=== PATIENT | female | born 1945 | race Caucasian/White ===

== ENCOUNTER 2021-01-01 14:48 | Outpatient (CLI) | payer MEDICARE ==
[2021-01-02 00:54] LABS: SARS-CoV-2 PCR by NAA Not Detected (NotDetected)
== END 2021-01-01 14:49 | disposition home or self-care (01) ==
LOC: LABBT 14:48
DX: Z01.812 Encounter for preprocedural laboratory examination (principal); Z20.822 Contact with and (suspected) exposure to COVID-19
CPT/HCPCS: U0003; U0005

== ENCOUNTER 2022-04-26 05:59 | Day surgery (SDC) | payer OTHER ==
[2022-04-25 15:50] VITALS: BMI 16.5
[2022-04-26] MEDS ORDERED: Lidocaine 1% (PF) 30 ML VIAL ONE (06:30)
[2022-04-26] MEDS ORDERED: EPINEPHrine 1 MG/ML AMP ONE (06:30)
== END 2022-04-26 07:45 | disposition home or self-care (01) ==
LOC: CCL 05:59
PROVIDERS: ATTEND Internal Medicine Cardiovascular Disease
PROC: 0JH632Z Insertion of Monitoring Device into Chest Subcutaneous Tissue and Fascia, Percutaneous Approach (ICD-10-PCS; principal; 2022-04-26)
DX: R55 Syncope and collapse (principal); I47.1 Supraventricular tachycardia; E78.00 Pure hypercholesterolemia, unspecified; I11.9 Hypertensive heart disease without heart failure; E03.9 Hypothyroidism, unspecified; I65.23 Occlusion and stenosis of bilateral carotid arteries; I08.0 Rheumatic disorders of both mitral and aortic valves; Z86.73 Personal history of transient ischemic attack (TIA), and cerebral infarction without residual deficits; Z79.82 Long term (current) use of aspirin; Z79.890 Hormone replacement therapy; Z79.899 Other long term (current) drug therapy; Z88.0 Allergy status to penicillin; Z88.5 Allergy status to narcotic agent
CPT/HCPCS: 33285; J0171; J2001

== ENCOUNTER 2022-07-19 13:45 | Outpatient (CLI) | payer OTHER | END 2022-07-19 13:46 | disposition home or self-care (01) | LOC: BICRAD 13:45 | PROVIDERS: ATTEND Anesthesiology Pain Medicine | DX: M16.12 Unilateral primary osteoarthritis, left hip (principal) ==

== ENCOUNTER 2022-08-04 12:22 | Outpatient (CLI) | payer OTHER | END 2022-08-04 12:23 | disposition home or self-care (01) | LOC: TBSIIMAG 12:22 | PROVIDERS: ATTEND Anesthesiology Pain Medicine | DX: M48.062 Spinal stenosis, lumbar region with neurogenic claudication (principal); M47.816 Spondylosis without myelopathy or radiculopathy, lumbar region; K83.8 Other specified diseases of biliary tract | CPT/HCPCS: 72148 ==

== ENCOUNTER 2022-09-22 14:18 | Outpatient (CLI) | payer OTHER | END 2022-09-22 14:19 | disposition home or self-care (01) | LOC: BICULT 14:18 | PROVIDERS: ATTEND Internal Medicine Cardiovascular Disease | DX: I65.23 Occlusion and stenosis of bilateral carotid arteries (principal) | CPT/HCPCS: 93880 ==

== ENCOUNTER 2022-11-03 10:24 | Outpatient (CLI) | payer OTHER | END 2022-11-03 10:25 | disposition home or self-care (01) | LOC: ULT 10:24 | PROVIDERS: ATTEND Internal Medicine Gastroenterology | DX: R93.3 Abnormal findings on diagnostic imaging of other parts of digestive tract (principal); K82.8 Other specified diseases of gallbladder; K83.8 Other specified diseases of biliary tract | CPT/HCPCS: 76705 ==

== ENCOUNTER 2022-11-14 07:39 | Outpatient (CLI) | payer OTHER | END 2022-11-14 07:40 | disposition home or self-care (01) | LOC: SCSMRI 07:39 | PROVIDERS: ATTEND Internal Medicine Gastroenterology | DX: K83.8 Other specified diseases of biliary tract (principal); R93.2 Abnormal findings on diagnostic imaging of liver and biliary tract; K82.8 Other specified diseases of gallbladder; K76.89 Other specified diseases of liver | CPT/HCPCS: 74183 ==

== ENCOUNTER 2022-11-25 23:18 | Inpatient (IN) | payer OTHER ==
[2022-11-26] MEDS ORDERED: Ondansetron PF 4 MG/2 ML Vial IVP PRN (00:07)
[2022-11-26] MEDS ORDERED: hydrALAZINE 20 MG/ML VIAL SLOW IVP PRN (00:07)
[2022-11-26] MEDS ORDERED: Calcium Carbonate 500 MG ChewTAB PO PRN (00:07)
[2022-11-26] MEDS ORDERED: Ondansetron ODT 4 MG TAB PO PRN (00:07)
[2022-11-26] MEDS ORDERED: Acetaminophen 500 MG TAB PO SCH (00:30)
[2022-11-26] MEDS ORDERED: Aspirin Chewable 81 MG TAB PO SCH (00:30)
[2022-11-26] MEDS ORDERED: ALPRAZolam 0.5 MG TAB PO SCH ×3 (01:45→17:00)
[2022-11-26] MEDS: Baclofen 10 MG TAB PO PRN ×3 (01:51→18:29)
[2022-11-26] MEDS ORDERED: Zolpidem Tartrate 5 MG TAB PO SCH (03:00)
[2022-11-26] MEDS: Carbidopa/Levodopa 25-100 mg Tablet PO SCH ×3 (04:35→17:24)
[2022-11-26 05:03] LABS: #Eosinphils 0.2 thou/uL (0.0-0.7); #Monocytes 0.5 thou/uL (0.11-0.59); #Neutrophils 4.4 thou/uL (1.40-6.50); %Basophils 0.3 % (0.0-1.0); %Lymphocytes 40.2 % (21.0-51.0); %Monocytes 5.9 % (0.0-10.0); %Neutrophils 51.4 % (42.0-75.0); Hematocrit 37.8 % (36.0-47.0); Hemoglobin 12.6 g/dL (12.0-16.0); Mean Corpuscular HGB CONC 33.3 g/dL (32.0-36.0); Mean Corpuscular Hemoglobin 33.5 pg (27.0-31.0); Mean Corpuscular Volume 100.5 fl (78.0-98.0); Mean Platelet Volume 9.9 fL (7.4-10.4); Platelet Count 163 10x3/uL (130-400); RBC Distribution Width 14.6 % (11.5-14.5); Red Blood Cell (RBC) Count 3.76 mill/uL (4.20-5.40); White Blood Cell (WBC) Count 8.6 10x3/uL (4.8-10.8)
[2022-11-26 05:17] LABS: Hemoglobin A1c 5.3 % (4.0-6.0)
[2022-11-26 05:36] LABS: ALT (SGPT) Less than 7 U/L (8-55); AST (SGOT) 12 U/L (5-34); Albumin 3.7 g/dL (3.4-4.8); Alkaline Phosphatase 66 U/L (40-110); Anion Gap 12 mmol/L (10-20); BUN (Urea Nitrogen) 19 mg/dL (9.8-20.1); Bilirubin, Total 0.3 mg/dL (0.2-1.2); Calc. Creatinine Clearance 0 mL/min (70-130); Calcium 8.6 mg/dL (7.8-10.44); Carbon Dioxide 22 mmol/L (23-31); Chloride 109 mmol/L (98-107); Cholesterol 128 mg/dl (< 200 Desired); Estimated GFR 71; Globulin 2.3 g/dL (2.4-3.5); Glucose 99 mg/dL (83-110); HDL Cholesterol 63 mg/dL (>60 Neg Risk); LDL Cholesterol, Calculated 42 mg/dL; Magnesium 1.9 mg/dL (1.6-2.6); Potassium 3.7 mmol/L (3.5-5.1); Sodium 139 mmol/L (136-145); Triglycerides 113 mg/dL (Less than 150)
[2022-11-26] MEDS ORDERED: Carbidopa/Levodopa 10-100 mg Tablet PO SCH (08:00)
[2022-11-26] MEDS: Topiramate 100 MG TAB PO SCH (08:29)
[2022-11-26] MEDS: Aspirin 81 mg Enteric Coated Tablet PO SCH (08:29)
[2022-11-26] MEDS ORDERED: Milk Of Magnesia 30 ML UDCUP PO PRN (08:45)
[2022-11-26] MEDS ORDERED: Bisacodyl 5 MG TAB PO PRN (08:45)
[2022-11-26] MEDS ORDERED: Carbidopa/Levodopa 25-100 mg Tablet PO SCH (09:00)
[2022-11-26] MEDS: Furosemide 20 MG TAB PO SCH (10:09)
[2022-11-26] MEDS ORDERED: Levothyroxine Sodium 75 MCG TAB PO SCH (11:00)
[2022-11-26] MEDS: Acetaminophen 325 MG TAB PO PRN ×3 (12:21→21:32)
[2022-11-26] MEDS: ALPRAZolam 0.5 MG TAB PO SCH ×2 (13:42→18:01)
[2022-11-26] MEDS ORDERED: levETIRAcetam 500 MG/5 ML VIAL SLOW IVP SCH (15:30)
[2022-11-26 19:25] VITALS: BMI 17.5
[2022-11-26] MEDS ORDERED: Atorvastatin Calcium 40 MG TAB PO SCH (21:00)
[2022-11-26] MEDS: Zolpidem Tartrate 5 MG TAB PO SCH (21:30)
[2022-11-26] MEDS: Atorvastatin Calcium 10 MG TAB PO SCH (21:30)
[2022-11-26] MEDS: levETIRAcetam 500 MG/5 ML VIAL SLOW IVP SCH (21:31)
[2022-11-26] MEDS: ALPRAZolam 0.5 MG TAB PO PRN (23:38)
[2022-11-27] MEDS: Acetaminophen 325 MG TAB PO PRN ×4 (00:25→20:11)
[2022-11-27] MEDS: Baclofen 10 MG TAB PO PRN ×4 (00:27→20:16)
[2022-11-27 05:14] LABS: #Eosinphils 0.2 thou/uL (0.0-0.7); #Monocytes 0.6 thou/uL (0.11-0.59); #Neutrophils 3.4 thou/uL (1.40-6.50); %Basophils 0.4 % (0.0-1.0); %Eosinophils 3.2 % (0.0-10.0); %Lymphocytes 42.7 % (21.0-51.0); %Monocytes 7.4 % (0.0-10.0); Hematocrit 37.3 % (36.0-47.0); Hemoglobin 12.2 g/dL (12.0-16.0); Mean Corpuscular HGB CONC 32.7 g/dL (32.0-36.0); Mean Corpuscular Hemoglobin 33.6 pg (27.0-31.0); Mean Corpuscular Volume 102.8 fl (78.0-98.0); Mean Platelet Volume 9.7 fL (7.4-10.4); Platelet Count 158 10x3/uL (130-400); RBC Distribution Width 14.8 % (11.5-14.5); Red Blood Cell (RBC) Count 3.63 mill/uL (4.20-5.40); White Blood Cell (WBC) Count 7.4 10x3/uL (4.8-10.8)
[2022-11-27] MEDS: Levothyroxine Sodium 50 MCG TAB PO SCH (05:26)
[2022-11-27] MEDS: Carbidopa/Levodopa 25-100 mg Tablet PO SCH ×3 (05:26→17:26)
[2022-11-27 05:37] LABS: Anion Gap 9 mmol/L (10-20); BUN (Urea Nitrogen) 23 mg/dL (9.8-20.1); Calc. Creatinine Clearance 36 mL/min (70-130); Calcium 8.7 mg/dL (7.8-10.44); Carbon Dioxide 24 mmol/L (23-31); Chloride 109 mmol/L (98-107); Estimated GFR 60; Glucose 96 mg/dL (83-110); Potassium 3.4 mmol/L (3.5-5.1); Sodium 139 mmol/L (136-145)
[2022-11-27] MEDS: Aspirin 81 mg Enteric Coated Tablet PO SCH (08:34)
[2022-11-27] MEDS: levETIRAcetam 500 MG/5 ML VIAL SLOW IVP SCH ×2 (08:34→20:10)
[2022-11-27] MEDS: Topiramate 100 MG TAB PO SCH (08:34)
[2022-11-27] MEDS: ALPRAZolam 0.5 MG TAB PO PRN ×2 (12:40→23:44)
[2022-11-27] MEDS ORDERED: Electrolyte Replacement Protocol 1 EACH FS SCH (13:15)
[2022-11-27] MEDS ORDERED: Potassium Chloride 20 MEQ TAB PO SCH (13:15)
[2022-11-27] MEDS: Zolpidem Tartrate 5 MG TAB PO SCH (20:11)
[2022-11-27] MEDS: Atorvastatin Calcium 10 MG TAB PO SCH (20:12)
[2022-11-28] MEDS ORDERED: Carbidopa/Levodopa 25-100 mg Tablet PO SCH (01:00)
[2022-11-28 05:08] LABS: #Eosinphils 0.2 thou/uL (0.0-0.7); #Monocytes 0.6 thou/uL (0.11-0.59); #Neutrophils 3.6 thou/uL (1.40-6.50); %Basophils 0.5 % (0.0-1.0); %Eosinophils 2.3 % (0.0-10.0); %Lymphocytes 41.5 % (21.0-51.0); %Monocytes 7.4 % (0.0-10.0); Hematocrit 38.2 % (36.0-47.0); Hemoglobin 12.6 g/dL (12.0-16.0); Mean Corpuscular Hemoglobin 34.1 pg (27.0-31.0); Mean Corpuscular Volume 103.2 fl (78.0-98.0); Mean Platelet Volume 9.7 fL (7.4-10.4); Platelet Count 152 10x3/uL (130-400); RBC Distribution Width 14.7 % (11.5-14.5); White Blood Cell (WBC) Count 7.5 10x3/uL (4.8-10.8)
[2022-11-28] MEDS: Carbidopa/Levodopa 25-100 mg Tablet PO SCH ×3 (05:21→17:50)
[2022-11-28] MEDS: Levothyroxine Sodium 75 MCG TAB PO SCH (05:22)
[2022-11-28] MEDS: Acetaminophen 325 MG TAB PO PRN ×4 (05:37→21:27)
[2022-11-28] MEDS: Baclofen 10 MG TAB PO PRN ×3 (05:37→21:22)
[2022-11-28 05:42] LABS: Anion Gap 10 mmol/L (10-20); BUN (Urea Nitrogen) 20 mg/dL (9.8-20.1); Calc. Creatinine Clearance 40 mL/min (70-130); Calcium 9.1 mg/dL (7.8-10.44); Carbon Dioxide 21 mmol/L (23-31); Chloride 111 mmol/L (98-107); Estimated GFR 69; Glucose 98 mg/dL (83-110); Magnesium 2.3 mg/dL (1.6-2.6); Potassium 4.1 mmol/L (3.5-5.1); Sodium 138 mmol/L (136-145)
[2022-11-28] MEDS: Aspirin 81 mg Enteric Coated Tablet PO SCH (09:11)
[2022-11-28] MEDS: Furosemide 20 MG TAB PO SCH (09:12)
[2022-11-28] MEDS: Topiramate 100 MG TAB PO SCH (09:12)
[2022-11-28] MEDS: levETIRAcetam 500 MG/5 ML VIAL SLOW IVP SCH ×2 (09:12→21:22)
[2022-11-28] MEDS: ALPRAZolam 0.5 MG TAB PO PRN (09:17)
[2022-11-28] MEDS: Atorvastatin Calcium 10 MG TAB PO SCH (21:22)
[2022-11-28] MEDS: Zolpidem Tartrate 5 MG TAB PO SCH (23:24)
[2022-11-29] MEDS: ALPRAZolam 0.5 MG TAB PO PRN ×2 (00:24→09:31)
[2022-11-29] MEDS: Acetaminophen 325 MG TAB PO PRN ×4 (04:20→22:36)
[2022-11-29] MEDS: Carbidopa/Levodopa 25-100 mg Tablet PO SCH ×3 (04:21→18:05)
[2022-11-29] MEDS: Levothyroxine Sodium 50 MCG TAB PO SCH (07:31)
[2022-11-29 08:11] LABS: #Eosinphils 0.2 thou/uL (0.0-0.7); #Monocytes 0.4 thou/uL (0.11-0.59); #Neutrophils 3.3 thou/uL (1.40-6.50); %Basophils 0.4 % (0.0-1.0); %Eosinophils 3.1 % (0.0-10.0); %Lymphocytes 40.9 % (21.0-51.0); %Monocytes 6.3 % (0.0-10.0); %Neutrophils 49.2 % (42.0-75.0); Hematocrit 41.1 % (36.0-47.0); Hemoglobin 12.8 g/dL (12.0-16.0); Mean Corpuscular HGB CONC 31.1 g/dL (32.0-36.0); Mean Corpuscular Hemoglobin 33.3 pg (27.0-31.0); Mean Platelet Volume 9.4 fL (7.4-10.4); Platelet Count 143 10x3/uL (130-400); RBC Distribution Width 14.7 % (11.5-14.5); Red Blood Cell (RBC) Count 3.84 mill/uL (4.20-5.40); White Blood Cell (WBC) Count 6.7 10x3/uL (4.8-10.8)
[2022-11-29 08:40] LABS: Anion Gap 10 mmol/L (10-20); BUN (Urea Nitrogen) 22 mg/dL (9.8-20.1); Calc. Creatinine Clearance 43 mL/min (70-130); Calcium 8.9 mg/dL (7.8-10.44); Carbon Dioxide 21 mmol/L (23-31); Chloride 111 mmol/L (98-107); Estimated GFR 74; Glucose 93 mg/dL (83-110); Potassium 4.4 mmol/L (3.5-5.1); Sodium 138 mmol/L (136-145)
[2022-11-29] MEDS: Baclofen 10 MG TAB PO PRN ×2 (09:31→22:34)
[2022-11-29] MEDS: Aspirin 81 mg Enteric Coated Tablet PO SCH (09:31)
[2022-11-29] MEDS: levETIRAcetam 500 MG/5 ML VIAL SLOW IVP SCH ×2 (09:31→20:09)
[2022-11-29] MEDS: Topiramate 100 MG TAB PO SCH (09:31)
[2022-11-29] MEDS: traMADol HCl 50 MG TAB PO PRN ×2 (12:13→20:09)
[2022-11-29] MEDS: Atorvastatin Calcium 10 MG TAB PO SCH (20:09)
[2022-11-29] MEDS: Zolpidem Tartrate 5 MG TAB PO SCH (22:34)
[2022-11-30] MEDS: ALPRAZolam 0.5 MG TAB PO PRN ×2 (00:58→14:32)
[2022-11-30] MEDS: traMADol HCl 50 MG TAB PO PRN ×3 (04:01→20:11)
[2022-11-30] MEDS: Acetaminophen 325 MG TAB PO PRN ×3 (04:02→22:29)
[2022-11-30] MEDS: Carbidopa/Levodopa 25-100 mg Tablet PO SCH ×3 (04:02→17:59)
[2022-11-30 05:54] LABS: #Eosinphils 0.2 thou/uL (0.0-0.7); #Monocytes 0.5 thou/uL (0.11-0.59); #Neutrophils 2.1 thou/uL (1.40-6.50); %Basophils 0.6 % (0.0-1.0); %Eosinophils 3.9 % (0.0-10.0); %Lymphocytes 47.9 % (21.0-51.0); %Monocytes 8.9 % (0.0-10.0); %Neutrophils 38.5 % (42.0-75.0); Hematocrit 40.1 % (36.0-47.0); Hemoglobin 12.8 g/dL (12.0-16.0); Mean Corpuscular HGB CONC 31.9 g/dL (32.0-36.0); Mean Corpuscular Hemoglobin 33.9 pg (27.0-31.0); Mean Corpuscular Volume 106.1 fl (78.0-98.0); Mean Platelet Volume 9.6 fL (7.4-10.4); Platelet Count 145 10x3/uL (130-400); RBC Distribution Width 14.6 % (11.5-14.5); Red Blood Cell (RBC) Count 3.78 mill/uL (4.20-5.40); White Blood Cell (WBC) Count 5.4 10x3/uL (4.8-10.8)
[2022-11-30 06:18] LABS: Anion Gap 11 mmol/L (10-20); BUN (Urea Nitrogen) 20 mg/dL (9.8-20.1); Calc. Creatinine Clearance 43 mL/min (70-130); Calcium 8.7 mg/dL (7.8-10.44); Carbon Dioxide 21 mmol/L (23-31); Chloride 110 mmol/L (98-107); Estimated GFR 74; Glucose 85 mg/dL (83-110); Potassium 3.9 mmol/L (3.5-5.1); Sodium 138 mmol/L (136-145)
[2022-11-30] MEDS: Baclofen 10 MG TAB PO PRN ×2 (06:24→14:32)
[2022-11-30] MEDS: Levothyroxine Sodium 75 MCG TAB PO SCH (06:24)
[2022-11-30] MEDS: Aspirin 81 mg Enteric Coated Tablet PO SCH (09:11)
[2022-11-30] MEDS: Topiramate 100 MG TAB PO SCH (09:11)
[2022-11-30] MEDS: levETIRAcetam 500 MG/5 ML VIAL SLOW IVP SCH ×2 (09:11→20:11)
[2022-11-30] MEDS: Furosemide 20 MG TAB PO SCH (09:15)
[2022-11-30] MEDS ORDERED: Senokot 8.6 MG TAB PO PRN (11:42)
[2022-11-30] MEDS: Atorvastatin Calcium 10 MG TAB PO SCH (20:11)
[2022-11-30] MEDS: Docusate 100 MG CAP PO SCH (20:12)
[2022-11-30] MEDS: Zolpidem Tartrate 5 MG TAB PO SCH (22:29)
[2022-12-01] MEDS: Baclofen 10 MG TAB PO PRN ×3 (00:57→22:17)
[2022-12-01] MEDS: ALPRAZolam 0.5 MG TAB PO PRN ×3 (00:57→18:12)
[2022-12-01] MEDS: Levothyroxine Sodium 50 MCG TAB PO SCH (05:02)
[2022-12-01] MEDS: Carbidopa/Levodopa 25-100 mg Tablet PO SCH ×3 (05:02→18:03)
[2022-12-01] MEDS: traMADol HCl 50 MG TAB PO PRN ×4 (05:02→20:38)
[2022-12-01] MEDS: Topiramate 100 MG TAB PO SCH (08:32)
[2022-12-01] MEDS: levETIRAcetam 500 MG/5 ML VIAL SLOW IVP SCH (08:32)
[2022-12-01] MEDS: Acetaminophen 325 MG TAB PO PRN (08:32)
[2022-12-01] MEDS: Aspirin 81 mg Enteric Coated Tablet PO SCH (08:32)
[2022-12-01] MEDS: traMADol HCl 50 MG TAB PO SCH ×2 (15:13→22:42)
[2022-12-01] MEDS: Atorvastatin Calcium 10 MG TAB PO SCH (20:34)
[2022-12-01] MEDS: levETIRAcetam 500 MG TAB PO SCH (20:37)
[2022-12-01] MEDS: Docusate 100 MG CAP PO SCH (20:37)
[2022-12-01] MEDS: Zolpidem Tartrate 5 MG TAB PO SCH (22:17)
[2022-12-02] MEDS: traMADol HCl 50 MG TAB PO PRN ×3 (01:10→18:17)
[2022-12-02] MEDS: ALPRAZolam 0.5 MG TAB PO PRN ×3 (01:10→18:22)
[2022-12-02] MEDS: Acetaminophen 325 MG TAB PO PRN (05:01)
[2022-12-02] MEDS: Carbidopa/Levodopa 25-100 mg Tablet PO SCH ×3 (05:02→18:17)
[2022-12-02] MEDS: Levothyroxine Sodium 75 MCG TAB PO SCH (05:02)
[2022-12-02] MEDS: traMADol HCl 50 MG TAB PO SCH ×2 (05:47→14:05)
[2022-12-02] MEDS ORDERED: Lidocaine 4% Patch TD SCH (07:45)
[2022-12-02] MEDS: levETIRAcetam 500 MG TAB PO SCH ×2 (08:58→20:24)
[2022-12-02] MEDS: Aspirin 81 mg Enteric Coated Tablet PO SCH (08:58)
[2022-12-02] MEDS: Topiramate 100 MG TAB PO SCH (08:59)
[2022-12-02] MEDS: Lidocaine 4% Patch TD SCH (09:00)
[2022-12-02] MEDS: Furosemide 20 MG TAB PO SCH (10:54)
[2022-12-02] MEDS: Baclofen 10 MG TAB PO PRN (10:57)
[2022-12-02] MEDS: Sodium Chloride 0.9% 500 ML IV SCH (18:22)
[2022-12-02] MEDS: Zolpidem Tartrate 5 MG TAB PO SCH (20:25)
[2022-12-02] MEDS: Atorvastatin Calcium 10 MG TAB PO SCH (20:25)
[2022-12-02] MEDS: Docusate 100 MG CAP PO SCH (20:25)
[2022-12-02] MEDS: Transdermal Patch Removal TOP SCH (20:50)
[2022-12-03] MEDS: traMADol HCl 50 MG TAB PO PRN ×4 (00:33→20:34)
[2022-12-03] MEDS: ALPRAZolam 0.5 MG TAB PO PRN ×3 (00:35→16:39)
[2022-12-03] MEDS: Carbidopa/Levodopa 25-100 mg Tablet PO SCH ×3 (04:41→18:01)
[2022-12-03] MEDS: Sodium Chloride 0.9% 500 ML IV SCH ×3 (04:48→20:40)
[2022-12-03] MEDS: Levothyroxine Sodium 50 MCG TAB PO SCH (05:38)
[2022-12-03] MEDS: Aspirin 81 mg Enteric Coated Tablet PO SCH (08:30)
[2022-12-03] MEDS: levETIRAcetam 500 MG TAB PO SCH ×2 (08:30→20:35)
[2022-12-03] MEDS: Topiramate 100 MG TAB PO SCH (08:30)
[2022-12-03] MEDS: Lidocaine 4% Patch TD SCH (08:31)
[2022-12-03] MEDS ORDERED: Fluticasone Propionate Nasal Spray 16 gm Bottle NASAL SCH ×2 (09:15→09:30)
[2022-12-03] MEDS: Acetaminophen 325 MG TAB PO PRN (19:27)
[2022-12-03] MEDS: Baclofen 10 MG TAB PO PRN (19:28)
[2022-12-03] MEDS: Docusate 100 MG CAP PO SCH (20:36)
[2022-12-03] MEDS: Atorvastatin Calcium 10 MG TAB PO SCH (20:36)
[2022-12-03] MEDS: Transdermal Patch Removal TOP SCH (20:43)
[2022-12-03] MEDS: Zolpidem Tartrate 5 MG TAB PO SCH (22:50)
[2022-12-04] MEDS: ALPRAZolam 0.5 MG TAB PO PRN ×3 (01:17→23:55)
[2022-12-04] MEDS: Acetaminophen 325 MG TAB PO PRN ×2 (01:23→23:55)
[2022-12-04] MEDS: Baclofen 10 MG TAB PO PRN (06:20)
[2022-12-04] MEDS: Carbidopa/Levodopa 25-100 mg Tablet PO SCH ×3 (06:20→18:15)
[2022-12-04] MEDS: Levothyroxine Sodium 75 MCG TAB PO SCH (07:05)
[2022-12-04] MEDS ORDERED: Ipratropium/Albuterol 3 ML NEB NEB PRN (07:50)
[2022-12-04] MEDS ORDERED: Benzonatate 100 MG CAP PO PRN (07:51)
[2022-12-04] MEDS: Fluticasone Propionate Nasal Spray 16 gm Bottle NASAL SCH (09:34)
[2022-12-04] MEDS: Aspirin 81 mg Enteric Coated Tablet PO SCH (09:35)
[2022-12-04] MEDS: Topiramate 100 MG TAB PO SCH (09:35)
[2022-12-04] MEDS: Lidocaine 4% Patch TD SCH (09:36)
[2022-12-04] MEDS: Loratadine 10 MG TAB PO SCH (09:36)
[2022-12-04] MEDS: levETIRAcetam 500 MG TAB PO SCH ×2 (09:36→20:25)
[2022-12-04] MEDS: Furosemide 20 MG TAB PO SCH (09:39)
[2022-12-04] MEDS: traMADol HCl 50 MG TAB PO PRN ×2 (12:48→18:35)
[2022-12-04] MEDS: Docusate 100 MG CAP PO SCH (20:25)
[2022-12-04] MEDS: Atorvastatin Calcium 10 MG TAB PO SCH (20:25)
[2022-12-04] MEDS: guaiFENesin ER 600 MG TAB PO SCH (20:26)
[2022-12-04] MEDS: Transdermal Patch Removal TOP SCH (20:28)
[2022-12-04] MEDS: Zolpidem Tartrate 5 MG TAB PO SCH (22:00)
[2022-12-05] MEDS: Baclofen 10 MG TAB PO PRN ×2 (02:17→09:17)
[2022-12-05 05:30] LABS: #Eosinphils 0.2 thou/uL (0.0-0.7); #Monocytes 0.8 thou/uL (0.11-0.59); #Neutrophils 3.2 thou/uL (1.40-6.50); %Basophils 0.3 % (0.0-1.0); %Eosinophils 3.2 % (0.0-10.0); %Lymphocytes 36.2 % (21.0-51.0); %Monocytes 11.6 % (0.0-10.0); %Neutrophils 48.5 % (42.0-75.0); Hematocrit 36.1 % (36.0-47.0); Hemoglobin 11.9 g/dL (12.0-16.0); Mean Corpuscular Hemoglobin 33.6 pg (27.0-31.0); Mean Platelet Volume 10.1 fL (7.4-10.4); Platelet Count 130 10x3/uL (130-400); RBC Distribution Width 13.9 % (11.5-14.5); Red Blood Cell (RBC) Count 3.54 mill/uL (4.20-5.40); White Blood Cell (WBC) Count 6.7 10x3/uL (4.8-10.8)
[2022-12-05 05:50] LABS: Anion Gap 11 mmol/L (10-20); BUN (Urea Nitrogen) 17 mg/dL (9.8-20.1); Calc. Creatinine Clearance 44 mL/min (70-130); Calcium 8.9 mg/dL (7.8-10.44); Carbon Dioxide 21 mmol/L (23-31); Chloride 108 mmol/L (98-107); Estimated GFR 77; Glucose 101 mg/dL (83-110); Potassium 3.7 mmol/L (3.5-5.1); Sodium 136 mmol/L (136-145)
[2022-12-05] MEDS: Carbidopa/Levodopa 25-100 mg Tablet PO SCH ×3 (05:55→16:56)
[2022-12-05] MEDS: Levothyroxine Sodium 50 MCG TAB PO SCH (05:57)
[2022-12-05] MEDS: Topiramate 100 MG TAB PO SCH (09:16)
[2022-12-05] MEDS: Aspirin 81 mg Enteric Coated Tablet PO SCH (09:16)
[2022-12-05] MEDS: ALPRAZolam 0.5 MG TAB PO PRN ×2 (09:16→16:56)
[2022-12-05] MEDS: levETIRAcetam 500 MG TAB PO SCH ×2 (09:16→21:14)
[2022-12-05] MEDS: Loratadine 10 MG TAB PO SCH (09:17)
[2022-12-05] MEDS: Fluticasone Propionate Nasal Spray 16 gm Bottle NASAL SCH (09:17)
[2022-12-05] MEDS: traMADol HCl 50 MG TAB PO PRN ×3 (09:17→21:15)
[2022-12-05] MEDS: guaiFENesin ER 600 MG TAB PO SCH ×2 (09:17→21:15)
[2022-12-05] MEDS: Lidocaine 4% Patch TD SCH (09:24)
[2022-12-05 14:04] LABS: Bilirubin Negative (Negative); Blood, Urine Negative (Negative); CAUTI Indications for Culture Dysuria,urgency,freq; Clarity Clear (Clear); Glucose, Urine (Dipstick) Normal (Negative); Ketone, Urine Negative (Negative); Leukocyte 500 Leu/uL (Negative); Nitrite Negative (Negative); Protein, Urine (Dipstick) 10 mg/dL (Neg-Trace); RBC/HPF 0-3 HPF (0-3); Specific Gravity, Urine 1.021 (1.002-1.036); Squamous Epithelial 0-3 HPF (0-3); Urobilinogen Normal mg/dL (Less than 2); pH, Urine 6.5 (5.0-9.0)
[2022-12-05 14:07] LABS: Bacteria/HPF 1+ HPF (None Seen)
[2022-12-05 14:15] LABS: WBC/HPF 21-50 HPF (0-3)
[2022-12-05 14:17] LABS: Urine Culture Reflex Yes Yes
[2022-12-05] MEDS: Transdermal Patch Removal TOP SCH (21:15)
[2022-12-05] MEDS: Atorvastatin Calcium 10 MG TAB PO SCH (21:15)
[2022-12-05] MEDS: Zolpidem Tartrate 5 MG TAB PO SCH (21:15)
[2022-12-05] MEDS: Docusate 100 MG CAP PO SCH (21:15)
[2022-12-06] MEDS: ALPRAZolam 0.5 MG TAB PO PRN ×3 (01:14→13:41)
[2022-12-06] MEDS: Levothyroxine Sodium 75 MCG TAB PO SCH (05:08)
[2022-12-06] MEDS: Carbidopa/Levodopa 25-100 mg Tablet PO SCH ×3 (05:08→18:09)
[2022-12-06] MEDS: levETIRAcetam 500 MG TAB PO SCH (08:23)
[2022-12-06] MEDS: Aspirin 81 mg Enteric Coated Tablet PO SCH (08:23)
[2022-12-06] MEDS: Loratadine 10 MG TAB PO SCH (08:24)
[2022-12-06] MEDS: guaiFENesin ER 600 MG TAB PO SCH (08:24)
[2022-12-06] MEDS: Fluticasone Propionate Nasal Spray 16 gm Bottle NASAL SCH (08:24)
[2022-12-06] MEDS: traMADol HCl 50 MG TAB PO PRN ×3 (08:24→18:09)
[2022-12-06] MEDS: Lidocaine 4% Patch TD SCH (08:25)
[2022-12-06] MEDS: Topiramate 100 MG TAB PO SCH (08:25)
[2022-12-06] MEDS: Furosemide 20 MG TAB PO SCH (11:50)
[2022-12-06] MEDS: Baclofen 10 MG TAB PO PRN (12:21)
[2022-12-06 15:59] VITALS: BP 114/67; TEMP 97.6
== END 2022-12-06 18:40 | DRG 57 ==
LOC: INTOOBSV 23:18 → 2SE 23:18 → OBSVTOIN 11-27 17:43
PROVIDERS: ADMIT Student in an Organized Health Care Education/Training Program; ATTEND Internal Medicine
DX: G20 Parkinson's disease (principal); G45.9 Transient cerebral ischemic attack, unspecified; N39.0 Urinary tract infection, site not specified; R55 Syncope and collapse; E03.9 Hypothyroidism, unspecified; M50.30 Other cervical disc degeneration, unspecified cervical region; F41.9 Anxiety disorder, unspecified; M54.9 Dorsalgia, unspecified; G89.29 Other chronic pain; G25.81 Restless legs syndrome; E78.00 Pure hypercholesterolemia, unspecified; I87.2 Venous insufficiency (chronic) (peripheral); I07.1 Rheumatic tricuspid insufficiency; M48.02 Spinal stenosis, cervical region; M47.812 Spondylosis without myelopathy or radiculopathy, cervical region; M48.061 Spinal stenosis, lumbar region without neurogenic claudication; R35.0 Frequency of micturition; E87.6 Hypokalemia; B96.4 Proteus (mirabilis) (morganii) as the cause of diseases classified elsewhere; Z88.0 Allergy status to penicillin; Z88.8 Allergy status to other drugs, medicaments and biological substances; Z79.82 Long term (current) use of aspirin; Z79.890 Hormone replacement therapy; Z98.890 Other specified postprocedural states; Z90.710 Acquired absence of both cervix and uterus; Z86.73 Personal history of transient ischemic attack (TIA), and cerebral infarction without residual deficits; Z88.6 Allergy status to analgesic agent; Z85.820 Personal history of malignant melanoma of skin; R00.1 Bradycardia, unspecified
CPT/HCPCS: 36415; 70551; 71045; 72141; 80048; 80053; 80061; 81001; 83036; 83735; 84443; 85025; 87086; 93306; 96374; 96376; G0378; J1953; J7050

== ENCOUNTER 2023-01-18 11:04 | Emergency (ER) | payer MEDICARE, OTHER ==
[2023-01-18] MEDS ORDERED: Ondansetron PF 4 MG/2 ML Vial ONE ×2 (11:34→13:21)
[2023-01-18] MEDS ORDERED: fentaNYL 50 mcg/mL 1 mL Vial ONE (11:34)
[2023-01-18] MEDS ORDERED: Ketorolac Tromethamine 30 MG/ML VIAL ONE (13:21)
[2023-01-18] MEDS ORDERED: Morphine 4 MG/ML VIAL ONE (13:21)
== END 2023-01-18 16:10 | disposition home or self-care (01) ==
LOC: ERS 11:04
DX: M47.892 Other spondylosis, cervical region (principal)
CPT/HCPCS: 72125; 96374; 96375; 96376; 99284; J3010; J1885; J2270; J2405

== ENCOUNTER 2023-01-20 01:55 | Emergency (ER) | payer OTHER ==
[2023-01-20 03:03] LABS: #Monocytes 0.8 thou/uL (0.11-0.59); #Neutrophils 15.1 thou/uL (1.40-6.50); %Basophils 0.2 % (0.0-1.0); %Eosinophils 0.1 % (0.0-10.0); %Monocytes 4.5 % (0.0-10.0); %Neutrophils 86.4 % (42.0-75.0); Hematocrit 40.7 % (36.0-47.0); Hemoglobin 13.4 g/dL (12.0-16.0); Mean Corpuscular HGB CONC 32.9 g/dL (32.0-36.0); Mean Corpuscular Hemoglobin 33.4 pg (27.0-31.0); Mean Corpuscular Volume 101.5 fl (78.0-98.0); Mean Platelet Volume 9.4 fL (7.4-10.4); Platelet Count 169 10x3/uL (130-400); RBC Distribution Width 12.6 % (11.5-14.5); Red Blood Cell (RBC) Count 4.01 mill/uL (4.20-5.40); White Blood Cell (WBC) Count 17.5 10x3/uL (4.8-10.8)
[2023-01-20] MEDS ORDERED: Dexamethasone 10 MG/ML VIAL ONE (03:20)
[2023-01-20] MEDS ORDERED: HYDROmorphone 0.5 MG/0.5 ML SYRINGE ONE (03:20)
[2023-01-20] MEDS ORDERED: Ketorolac Tromethamine 30 MG/ML VIAL ONE (03:20)
[2023-01-20 03:24] LABS: ALT (SGPT) Less than 7 U/L (8-55); AST (SGOT) 9 U/L (5-34); Albumin 4.4 g/dL (3.4-4.8); Alkaline Phosphatase 55 U/L (40-110); Anion Gap 16 mmol/L (10-20); BUN (Urea Nitrogen) 15 mg/dL (9.8-20.1); Bilirubin, Total 0.4 mg/dL (0.2-1.2); Calc. Creatinine Clearance 0 mL/min (70-130); Carbon Dioxide 22 mmol/L (23-31); Chloride 105 mmol/L (98-107); Estimated GFR 74; Globulin 3.4 g/dL (2.4-3.5); Glucose 132 mg/dL (83-110); Protein, Total 7.8 g/dL (5.8-8.1); Sodium 139 mmol/L (136-145)
[2023-01-20] MEDS ORDERED: LORazepam 2 MG/ML SYR.(CARPUJECT) ONE (05:47)
[2023-01-20] MEDS ORDERED: Iopamidol-370 76% 500 ML MDV (1 ML CHARGE) ONE (13:51)
== END 2023-01-20 07:53 | disposition home or self-care (01) ==
LOC: ERS 01:55
DX: M50.90 Cervical disc disorder, unspecified, unspecified cervical region (principal)
CPT/HCPCS: 70496; 70498; 72125; 80053; 85025; 96374; 96375; 99284; J2060; 36415; J1100; J1170; J1885; Q9967

== ENCOUNTER 2023-01-21 12:29 | Inpatient (IN) | payer OTHER ==
[2023-01-21 12:55] LABS: Hematocrit 36.4 % (36.0-47.0); Hemoglobin 12.1 g/dL (12.0-16.0); Mean Corpuscular HGB CONC 33.2 g/dL (32.0-36.0); Mean Corpuscular Hemoglobin 34.1 pg (27.0-31.0); Mean Corpuscular Volume 102.5 fl (78.0-98.0); Mean Platelet Volume 9.3 fL (7.4-10.4); Platelet Count 144 10x3/uL (130-400); RBC Distribution Width 12.9 % (11.5-14.5); Red Blood Cell (RBC) Count 3.55 mill/uL (4.20-5.40); White Blood Cell (WBC) Count 16.6 10x3/uL (4.8-10.8)
[2023-01-21 12:59] LABS: Delete Auto Diff?? YES; Manual Diff?? YES
[2023-01-21 13:17] LABS: Anion Gap 14 mmol/L (10-20); BUN (Urea Nitrogen) 15 mg/dL (9.8-20.1); Calc. Creatinine Clearance 0 mL/min (70-130); Carbon Dioxide 21 mmol/L (23-31); Chloride 106 mmol/L (98-107); Potassium 3.6 mmol/L (3.5-5.1); Sodium 137 mmol/L (136-145)
[2023-01-21 13:18] LABS: ALT (SGPT) Less than 7 U/L (8-55); AST (SGOT) 17 U/L (5-34); Albumin 3.7 g/dL (3.4-4.8); Alkaline Phosphatase 78 U/L (40-110); Bilirubin, Total 0.4 mg/dL (0.2-1.2); Calcium 9.4 mg/dL (7.8-10.44); Estimated GFR 84; Globulin 3.3 g/dL (2.4-3.5); Glucose 102 mg/dL (83-110); Lipase 9 U/L (8-78)
[2023-01-21 13:21] LABS: Band 11 % (5-11); CellaVision Operator ID LAB.KB; Lymphocytes 5 % (21-51); Macrocytosis SLIGHT = 6-15 cells HPF (0-5); Monocytes 6 % (0-10); Neutrophil 78 % (42-75); Platelet Adequacy Comment Platelets Normal; Polychromasia SLIGHT = 2-3 cells HPF (0-2); Total Cell Count 101
[2023-01-21 13:22] LABS: Troponin I 0.035 ng/mL (< 0.028)
[2023-01-21 13:32] LABS: INR-International Normal Ratio 1.1; Prothrombin Time 14.8 sec (12.0-14.7)
[2023-01-21 13:34] LABS: PTT 36.2 sec (22.9-36.1)
[2023-01-21] MEDS ORDERED: Iopamidol-370 76% 500 ML MDV (1 ML CHARGE) ONE (14:35)
[2023-01-21] MEDS ORDERED: Morphine 2 MG/ML VIAL ONE (14:47)
[2023-01-21] MEDS ORDERED: Clindamycin/D5W 900 mg/50 ml Premix Bag ONE (14:57)
[2023-01-21] MEDS ORDERED: Dexamethasone 4 mg/ml Vial ONE (14:57)
[2023-01-21] MEDS ORDERED: Vancomycin 1 GM/200 ML (FROZEN) BAG ONE (14:57)
[2023-01-21] MEDS ORDERED: Morphine 4 MG/ML VIAL ONE (15:25)
[2023-01-21 16:00] LABS: SARS-CoV-2 NAA Rapid Test Not Detected (NotDetected)
[2023-01-21] MEDS ORDERED: Heparin 25,000 units/D5W 500 ML ONE (18:47)
[2023-01-21] MEDS ORDERED: Heparin 10,000 UNITS/ 10 ML VIAL ONE ×2 (18:47→18:49)
[2023-01-21] MEDS ORDERED: Acetaminophen 650 MG Suppository PR PRN (18:47)
[2023-01-21] MEDS ORDERED: Cefepime 2 GM in Sodium Chloride 0.9% 100 ML IVPB SCH (20:15)
[2023-01-21] MEDS: levETIRAcetam 500 MG/5 ML VIAL SLOW IVP SCH (22:46)
[2023-01-21] MEDS: Sodium Chloride 0.9% 1,000 ML IV SCH (22:47)
[2023-01-21] MEDS: Morphine 4 MG/ML VIAL SLOW IVP PRN (22:47)
[2023-01-22] MEDS ORDERED: Lorazepam 2 MG/ML VIAL SLOW IVP SCH (00:45)
[2023-01-22] MEDS ORDERED: Vancomycin HCl 500 MG in Sodium Chloride 0.9% 100 ML IVPB SCH (01:00)
[2023-01-22] MEDS: metroNIDAZOLE 500 MG in Premix 1 BAG IVPB SCH ×3 (01:15→15:38)
[2023-01-22 01:24] LABS: PTT 201.6 sec (22.9-36.1)
[2023-01-22 04:13] LABS: Anion Gap 14 mmol/L (10-20); BUN (Urea Nitrogen) 18 mg/dL (9.8-20.1); Calc. Creatinine Clearance 51 mL/min (70-130); Calcium 8.5 mg/dL (7.8-10.44); Carbon Dioxide 17 mmol/L (23-31); Chloride 109 mmol/L (98-107); Estimated GFR 88; Glucose 143 mg/dL (83-110); Potassium 3.8 mmol/L (3.5-5.1); Sodium 136 mmol/L (136-145)
[2023-01-22 07:03] LABS: Hematocrit 32.9 % (36.0-47.0); Hemoglobin 10.7 g/dL (12.0-16.0); Mean Corpuscular HGB CONC 32.5 g/dL (32.0-36.0); Mean Corpuscular Hemoglobin 32.9 pg (27.0-31.0); Mean Corpuscular Volume 101.2 fl (78.0-98.0); Mean Platelet Volume 10.9 fL (7.4-10.4); Platelet Count 111 10x3/uL (130-400); RBC Distribution Width 13.1 % (11.5-14.5); Red Blood Cell (RBC) Count 3.25 mill/uL (4.20-5.40); White Blood Cell (WBC) Count 13.4 10x3/uL (4.8-10.8)
[2023-01-22] MEDS: Morphine 4 MG/ML VIAL SLOW IVP PRN ×4 (07:33→21:34)
[2023-01-22 07:40] LABS: Delete Auto Diff?? YES; Manual Diff?? YES
[2023-01-22 08:59] LABS: Band 7 % (5-11); Lymphocytes 5 % (21-51); Monocytes 3 % (0-10); Neutrophil 85 % (42-75)
[2023-01-22] MEDS ORDERED: Magnevist 469MG/ML 20 ML VIAL ONE (09:11)
[2023-01-22] MEDS ORDERED: Cefepime 2 GM in Sodium Chloride 0.9% 100 ML IVPB SCH (10:00)
[2023-01-22] MEDS ORDERED: Morphine 4 MG/ML VIAL ONE (11:14)
[2023-01-22] MEDS: levETIRAcetam 500 MG/5 ML VIAL SLOW IVP SCH ×2 (13:16→21:35)
[2023-01-22] MEDS: Aspirin 300 MG Suppository PR SCH (13:17)
[2023-01-22] MEDS ORDERED: Dexamethasone 4 mg/ml Vial SLOW IVP SCH (15:00)
[2023-01-22] MEDS ORDERED: Vancomycin (BATCH) 1.25 GM in Premix 1 BAG IVPB SCH (18:00)
[2023-01-22] MEDS ORDERED: Lorazepam 2 MG/ML VIAL SLOW IVP PRN (18:25)
[2023-01-22] MEDS: Sodium Chloride 0.9% 1,000 ML IV SCH (19:09)
[2023-01-22] MEDS: Heparin 10,000 UNITS/ 10 ML VIAL SLOW IVP SCH (19:13)
[2023-01-22] MEDS ORDERED: ALPRAZolam 0.5 MG TAB PO SCH (19:15)
[2023-01-22] MEDS: Carbidopa/Levodopa 25-100 mg Tablet PO SCH (21:35)
[2023-01-22] MEDS: Baclofen 10 MG TAB PO SCH (21:35)
[2023-01-22] MEDS: Atorvastatin Calcium 20 MG TAB PO SCH (21:36)
[2023-01-23] MEDS: Morphine 4 MG/ML VIAL SLOW IVP PRN ×3 (01:38→10:56)
[2023-01-23 04:56] LABS: #Monocytes 0.4 thou/uL (0.11-0.59); #Neutrophils 10.9 thou/uL (1.40-6.50); %Basophils 0.2 % (0.0-1.0); %Lymphocytes 9.4 % (21.0-51.0); %Monocytes 3.1 % (0.0-10.0); %Neutrophils 86.7 % (42.0-75.0); Hematocrit 30.8 % (36.0-47.0); Mean Corpuscular HGB CONC 32.5 g/dL (32.0-36.0); Mean Corpuscular Hemoglobin 33.4 pg (27.0-31.0); Mean Platelet Volume 10.4 fL (7.4-10.4); Platelet Count 130 10x3/uL (130-400); RBC Distribution Width 13.1 % (11.5-14.5); Red Blood Cell (RBC) Count 2.99 mill/uL (4.20-5.40); White Blood Cell (WBC) Count 12.6 10x3/uL (4.8-10.8)
[2023-01-23 05:16] LABS: Anion Gap 14 mmol/L (10-20); BUN (Urea Nitrogen) 29 mg/dL (9.8-20.1); Calc. Creatinine Clearance 55 mL/min (70-130); Calcium 8.7 mg/dL (7.8-10.44); Carbon Dioxide 18 mmol/L (23-31); Chloride 112 mmol/L (98-107); Estimated GFR 90; Glucose 126 mg/dL (83-110); Potassium 3.6 mmol/L (3.5-5.1); Sodium 140 mmol/L (136-145)
[2023-01-23 05:30] LABS: Troponin I Less than 0.010 ng/mL (< 0.028)
[2023-01-23] MEDS ORDERED: ALPRAZolam 0.5 MG TAB PO SCH (07:00)
[2023-01-23] MEDS: Topiramate 100 MG TAB PO SCH (08:25)
[2023-01-23] MEDS: Baclofen 10 MG TAB PO SCH ×3 (08:25→21:52)
[2023-01-23] MEDS: levETIRAcetam 500 MG/5 ML VIAL SLOW IVP SCH ×2 (08:25→21:53)
[2023-01-23] MEDS: Carbidopa/Levodopa 25-100 mg Tablet PO SCH ×3 (08:25→21:52)
[2023-01-23] MEDS: Heparin 25,000 units/D5W 500 ML IVPB SCH (08:26)
[2023-01-23] MEDS ORDERED: Acetaminophen 325 MG/10.15 ML UDCUP PO PRN (09:04)
[2023-01-23] MEDS: Aspirin 300 MG Suppository PR SCH (10:53)
[2023-01-23] MEDS: CEFAZOLIN 2 GM in Sodium Chloride 0.9% 100 ML IVPB SCH ×2 (13:17→21:53)
[2023-01-23] MEDS ORDERED: Naloxone HCl 0.4 mg/ml Vial IV PRN ×2 (14:07→21:34)
[2023-01-23] MEDS ORDERED: diphenhydrAMINE 25 MG CAP PO PRN ×2 (14:07→21:34)
[2023-01-23] MEDS ORDERED: Promethazine HCl 25 MG/ML VIAL IM PRN ×2 (14:07→21:34)
[2023-01-23] MEDS ORDERED: diphenhydrAMINE 50 MG/ML VIAL IVP PRN ×2 (14:07→21:34)
[2023-01-23] MEDS ORDERED: Ondansetron PF 4 MG/2 ML Vial IVP PRN ×2 (14:07→21:34)
[2023-01-23] MEDS ORDERED: diphenhydrAMINE 50 MG/ML VIAL IM PRN ×2 (14:07→21:34)
[2023-01-23] MEDS ORDERED: FENTANYL 500 MCG/10 ML VIAL 2,000 MCG in Sodium Chloride 0.9% 60 ML IV PRN ×2 (14:07→21:34)
[2023-01-23] MEDS ORDERED: Communication Order-Pharmacy FS SCH ×2 (14:15→21:45)
[2023-01-23 14:28] VITALS: BMI 17.9
[2023-01-23] MEDS: Levothyroxine Sodium 50 MCG TAB PO SCH (15:20)
[2023-01-23] MEDS: Acetaminophen 325 MG TAB PO SCH ×2 (15:24→21:50)
[2023-01-23] MEDS: Sodium Chloride 0.9% 1,000 ML IV SCH (16:28)
[2023-01-23] MEDS: Dextrose 5 %-0.45 % NaCl 1,000 ML IV SCH (21:48)
[2023-01-23] MEDS: Docusate 100 MG CAP PO SCH (21:52)
[2023-01-23] MEDS: Atorvastatin Calcium 20 MG TAB PO SCH (21:52)
[2023-01-24] MEDS ORDERED: Morphine 2 MG/ML VIAL SLOW IVP SCH ×2 (01:00→04:30)
[2023-01-24] MEDS ORDERED: ALPRAZolam 0.5 MG TAB PO SCH (01:15)
[2023-01-24 04:33] LABS: #Basophils 0.1 thou/uL (0.0-0.2); #Monocytes 1.2 thou/uL (0.11-0.59); #Neutrophils 15.3 thou/uL (1.40-6.50); %Basophils 0.6 % (0.0-1.0); %Eosinophils 0.1 % (0.0-10.0); %Lymphocytes 7.7 % (21.0-51.0); %Monocytes 6.6 % (0.0-10.0); %Neutrophils 83.9 % (42.0-75.0); Hematocrit 39.3 % (36.0-47.0); Hemoglobin 12.5 g/dL (12.0-16.0); Mean Corpuscular HGB CONC 31.8 g/dL (32.0-36.0); Mean Corpuscular Hemoglobin 33.7 pg (27.0-31.0); Mean Corpuscular Volume 105.9 fl (78.0-98.0); Mean Platelet Volume 9.7 fL (7.4-10.4); Platelet Count 145 10x3/uL (130-400); Red Blood Cell (RBC) Count 3.71 mill/uL (4.20-5.40); White Blood Cell (WBC) Count 18.3 10x3/uL (4.8-10.8)
[2023-01-24 04:55] LABS: Anion Gap 14 mmol/L (10-20); BUN (Urea Nitrogen) 21 mg/dL (9.8-20.1); Calc. Creatinine Clearance 54 mL/min (70-130); Calcium 8.7 mg/dL (7.8-10.44); Carbon Dioxide 17 mmol/L (23-31); Chloride 110 mmol/L (98-107); Estimated GFR 90; Glucose 99 mg/dL (83-110); Potassium 3.5 mmol/L (3.5-5.1); Sodium 137 mmol/L (136-145)
[2023-01-24] MEDS: CEFAZOLIN 2 GM in Sodium Chloride 0.9% 100 ML IVPB SCH ×3 (06:10→22:03)
[2023-01-24] MEDS: Levothyroxine Sodium 75 MCG TAB PO SCH (06:10)
[2023-01-24] MEDS ORDERED: Aspirin 81 mg Enteric Coated Tablet PO SCH (09:00)
[2023-01-24] MEDS: levETIRAcetam 500 MG/5 ML VIAL SLOW IVP SCH ×2 (09:46→20:17)
[2023-01-24] MEDS: Docusate 100 MG CAP PO SCH ×2 (09:49→20:17)
[2023-01-24] MEDS: Carbidopa/Levodopa 25-100 mg Tablet PO SCH ×3 (09:50→20:16)
[2023-01-24] MEDS: Acetaminophen 325 MG TAB PO SCH ×4 (09:50→23:43)
[2023-01-24] MEDS: Topiramate 100 MG TAB PO SCH (09:50)
[2023-01-24] MEDS: ALPRAZolam 0.5 MG TAB PO SCH ×2 (09:51→20:17)
[2023-01-24] MEDS: Baclofen 10 MG TAB PO SCH ×3 (09:52→20:17)
[2023-01-24] MEDS: Polyethylene Glycol 3350 17 GM Packet PO SCH (09:53)
[2023-01-24] MEDS ORDERED: Naloxone HCl 0.4 mg/ml Vial IV PRN (11:30)
[2023-01-24] MEDS ORDERED: Promethazine HCl 25 MG/ML VIAL IM PRN (11:30)
[2023-01-24] MEDS ORDERED: diphenhydrAMINE 25 MG CAP PO PRN (11:30)
[2023-01-24] MEDS ORDERED: diphenhydrAMINE 50 MG/ML VIAL IM/IV PRN (11:30)
[2023-01-24] MEDS ORDERED: Zolpidem Tartrate 5 MG TAB PO PRN (11:30)
[2023-01-24] MEDS: Heparin 25,000 units/D5W 500 ML IVPB SCH (11:31)
[2023-01-24] MEDS: HYDROmorphone/PF 10 MG in Sodium Chloride 0.9% 99 ML IVPB PRN (13:14)
[2023-01-24] MEDS: Ketorolac Tromethamine 30 MG/ML VIAL IVP SCH ×3 (14:07→23:42)
[2023-01-24] MEDS: Dextrose 5 %-0.45 % NaCl 1,000 ML IV SCH (14:11)
[2023-01-24] MEDS: Atorvastatin Calcium 20 MG TAB PO SCH (20:17)
[2023-01-24 23:43] LABS: PTT 131.4 sec (22.9-36.1)
[2023-01-25 02:45] LABS: #Eosinphils 0.1 thou/uL (0.0-0.7); #Monocytes 0.7 thou/uL (0.11-0.59); #Neutrophils 9.7 thou/uL (1.40-6.50); %Basophils 0.3 % (0.0-1.0); %Eosinophils 0.5 % (0.0-10.0); %Lymphocytes 15.2 % (21.0-51.0); %Monocytes 5.3 % (0.0-10.0); Hemoglobin 10.3 g/dL (12.0-16.0); Mean Corpuscular HGB CONC 31.2 g/dL (32.0-36.0); Mean Corpuscular Hemoglobin 33.4 pg (27.0-31.0); Mean Corpuscular Volume 107.1 fl (78.0-98.0); Mean Platelet Volume 10.6 fL (7.4-10.4); Platelet Count 112 10x3/uL (130-400); RBC Distribution Width 13.1 % (11.5-14.5); Red Blood Cell (RBC) Count 3.08 mill/uL (4.20-5.40); White Blood Cell (WBC) Count 12.6 10x3/uL (4.8-10.8)
[2023-01-25 04:08] LABS: Anion Gap 13 mmol/L (10-20); BUN (Urea Nitrogen) 16 mg/dL (9.8-20.1); Calc. Creatinine Clearance 55 mL/min (70-130); Calcium 8.2 mg/dL (7.8-10.44); Carbon Dioxide 15 mmol/L (23-31); Chloride 112 mmol/L (98-107); Estimated GFR 90; Glucose 95 mg/dL (83-110); Sodium 137 mmol/L (136-145)
[2023-01-25] MEDS: Acetaminophen 325 MG TAB PO SCH ×3 (06:25→17:14)
[2023-01-25] MEDS: CEFAZOLIN 2 GM in Sodium Chloride 0.9% 100 ML IVPB SCH ×3 (06:25→22:35)
[2023-01-25] MEDS: Ketorolac Tromethamine 30 MG/ML VIAL IVP SCH ×3 (06:25→17:14)
[2023-01-25] MEDS: Levothyroxine Sodium 50 MCG TAB PO SCH (06:25)
[2023-01-25] MEDS: Docusate 100 MG CAP PO SCH ×2 (08:58→20:32)
[2023-01-25] MEDS: Topiramate 100 MG TAB PO SCH (08:58)
[2023-01-25] MEDS: ALPRAZolam 0.5 MG TAB PO SCH ×2 (08:58→20:31)
[2023-01-25] MEDS: Baclofen 10 MG TAB PO SCH ×3 (08:58→20:31)
[2023-01-25] MEDS: levETIRAcetam 500 MG/5 ML VIAL SLOW IVP SCH ×2 (08:58→20:31)
[2023-01-25] MEDS: Carbidopa/Levodopa 25-100 mg Tablet PO SCH ×3 (08:59→20:31)
[2023-01-25] MEDS: Polyethylene Glycol 3350 17 GM Packet PO SCH (08:59)
[2023-01-25] MEDS: Heparin 10,000 UNITS/ 10 ML VIAL SLOW IVP SCH (12:13)
[2023-01-25] MEDS: Dextrose 5 %-0.45 % NaCl 1,000 ML IV SCH (12:13)
[2023-01-25] MEDS ORDERED: Acetaminophen 325 MG TAB ONE (12:48)
[2023-01-25] MEDS: Atorvastatin Calcium 20 MG TAB PO SCH (20:31)
[2023-01-26] MEDS: Acetaminophen 325 MG TAB PO SCH ×5 (00:56→23:33)
[2023-01-26] MEDS: Ketorolac Tromethamine 30 MG/ML VIAL IVP SCH ×2 (00:56→06:36)
[2023-01-26] MEDS: Heparin 25,000 units/D5W 500 ML IVPB SCH (01:40)
[2023-01-26 05:36] LABS: ALT (SGPT) Less than 7 U/L (8-55); AST (SGOT) 21 U/L (5-34); Albumin 2.5 g/dL (3.4-4.8); Alkaline Phosphatase 97 U/L (40-110); Anion Gap 11 mmol/L (10-20); BUN (Urea Nitrogen) 11 mg/dL (9.8-20.1); Bilirubin, Total 0.3 mg/dL (0.2-1.2); Calc. Creatinine Clearance 55 mL/min (70-130); Calcium 7.9 mg/dL (7.8-10.44); Carbon Dioxide 22 mmol/L (23-31); Chloride 107 mmol/L (98-107); Estimated GFR 90; Globulin 2.9 g/dL (2.4-3.5); Glucose 111 mg/dL (83-110); Potassium 2.8 mmol/L (3.5-5.1); Protein, Total 5.4 g/dL (5.8-8.1); Sodium 137 mmol/L (136-145)
[2023-01-26] MEDS ORDERED: Electrolyte Replacement Protocol FS PRN (06:30)
[2023-01-26] MEDS ORDERED: Potassium Chloride 20 MEQ TAB PO SCH (06:30)
[2023-01-26 06:33] LABS: Magnesium 1.9 mg/dL (1.6-2.6)
[2023-01-26] MEDS: Levothyroxine Sodium 75 MCG TAB PO SCH (06:36)
[2023-01-26] MEDS: CEFAZOLIN 2 GM in Sodium Chloride 0.9% 100 ML IVPB SCH ×3 (06:36→23:33)
[2023-01-26] MEDS ORDERED: Magnesium 2 GM/50 ML(in water) 2 GM in Premix 1 BAG IVPB SCH (07:30)
[2023-01-26] MEDS: Dextrose 5 %-0.45 % NaCl 1,000 ML IV SCH (08:59)
[2023-01-26] MEDS: Potassium Chloride 40 MEQ in Sodium Chloride 0.9% 250 ML 250 ML IVPB SCH ×2 (09:00→13:46)
[2023-01-26] MEDS: ALPRAZolam 0.5 MG TAB PO SCH ×2 (09:17→20:04)
[2023-01-26] MEDS ORDERED: Magnevist 469MG/ML 20 ML VIAL ONE (10:01)
[2023-01-26] MEDS: Potassium Chloride 20 MEQ TAB PO SCH ×2 (10:30→13:46)
[2023-01-26] MEDS: Baclofen 10 MG TAB PO SCH ×3 (10:31→20:04)
[2023-01-26] MEDS: Docusate 100 MG CAP PO SCH ×2 (10:31→20:04)
[2023-01-26] MEDS: Carbidopa/Levodopa 25-100 mg Tablet PO SCH ×3 (10:31→20:04)
[2023-01-26] MEDS: Topiramate 100 MG TAB PO SCH (10:32)
[2023-01-26] MEDS: Polyethylene Glycol 3350 17 GM Packet PO SCH (10:32)
[2023-01-26] MEDS: levETIRAcetam 500 MG/5 ML VIAL SLOW IVP SCH ×2 (10:33→20:04)
[2023-01-26] MEDS: Atorvastatin Calcium 20 MG TAB PO SCH (20:04)
[2023-01-27 04:53] LABS: ALT (SGPT) Less than 7 U/L (8-55); AST (SGOT) 33 U/L (5-34); Albumin 3.1 g/dL (3.4-4.8); Alkaline Phosphatase 147 U/L (40-110); Anion Gap 12 mmol/L (10-20); BUN (Urea Nitrogen) 7 mg/dL (9.8-20.1); Bilirubin, Total 0.3 mg/dL (0.2-1.2); Calc. Creatinine Clearance 60 mL/min (70-130); Calcium 8.4 mg/dL (7.8-10.44); Carbon Dioxide 18 mmol/L (23-31); Chloride 108 mmol/L (98-107); Estimated GFR 92; Globulin 3.2 g/dL (2.4-3.5); Glucose 110 mg/dL (83-110); Magnesium 2.3 mg/dL (1.6-2.6); Phosphorus 1.5 mg/dL (2.3-4.7); Potassium 4.4 mmol/L (3.5-5.1); Protein, Total 6.3 g/dL (5.8-8.1); Sodium 134 mmol/L (136-145)
[2023-01-27] MEDS: Acetaminophen 325 MG TAB PO SCH ×3 (05:26→17:56)
[2023-01-27] MEDS: Levothyroxine Sodium 50 MCG TAB PO SCH (05:26)
[2023-01-27] MEDS: CEFAZOLIN 2 GM in Sodium Chloride 0.9% 100 ML IVPB SCH ×2 (05:26→13:49)
[2023-01-27] MEDS: Heparin 10,000 UNITS/ 10 ML VIAL SLOW IVP SCH (05:27)
[2023-01-27] MEDS: Dextrose 5 %-0.45 % NaCl 1,000 ML IV SCH (05:27)
[2023-01-27] MEDS ORDERED: Magnevist 469MG/ML 20 ML VIAL ONE (10:03)
[2023-01-27] MEDS: levETIRAcetam 500 MG/5 ML VIAL SLOW IVP SCH ×2 (10:10→21:14)
[2023-01-27] MEDS: Docusate 100 MG CAP PO SCH ×2 (10:10→21:14)
[2023-01-27] MEDS: Baclofen 10 MG TAB PO SCH ×3 (10:10→21:14)
[2023-01-27] MEDS: Carbidopa/Levodopa 25-100 mg Tablet PO SCH ×3 (10:10→21:14)
[2023-01-27] MEDS: ALPRAZolam 0.5 MG TAB PO SCH ×2 (10:11→21:14)
[2023-01-27] MEDS: Polyethylene Glycol 3350 17 GM Packet PO SCH ×2 (10:11→10:12)
[2023-01-27] MEDS: Topiramate 100 MG TAB PO SCH (10:11)
[2023-01-27] MEDS: PHOS-NAK 1 PKT PACK PO SCH ×4 (10:11→21:14)
[2023-01-27] MEDS: HYDROmorphone/PF 10 MG in Sodium Chloride 0.9% 99 ML IVPB PRN (10:45)
[2023-01-27] MEDS ORDERED: hydrALAZINE 20 MG/ML VIAL SLOW IVP PRN (11:57)
[2023-01-27] MEDS ORDERED: Lisinopril 20 MG TAB PO SCH (12:15)
[2023-01-27] MEDS: Heparin 25,000 units/D5W 500 ML IVPB SCH (13:47)
[2023-01-27] MEDS: Nystatin 500,000 UNITS/5 ML UDCUP SSW SCH (21:14)
[2023-01-27] MEDS: Atorvastatin Calcium 20 MG TAB PO SCH (21:14)
[2023-01-27] MEDS: ADMIXTURE FEE IVPB SCH (21:15)
[2023-01-27] MEDS: SODIUM CHLORIDE IVPB SCH (21:15)
[2023-01-27] MEDS: CEFAZOLIN IVPB SCH (21:15)
[2023-01-28] MEDS: Acetaminophen 325 MG TAB PO SCH ×4 (00:28→18:26)
[2023-01-28] MEDS: Dextrose 5 %-0.45 % NaCl 1,000 ML IV SCH ×2 (00:29→22:45)
[2023-01-28 04:48] LABS: #Eosinphils 0.3 thou/uL (0.0-0.7); #Monocytes 0.6 thou/uL (0.11-0.59); #Neutrophils 12.2 thou/uL (1.40-6.50); %Basophils 0.3 % (0.0-1.0); %Eosinophils 1.6 % (0.0-10.0); %Lymphocytes 13.7 % (21.0-51.0); %Neutrophils 79.4 % (42.0-75.0); Hematocrit 29.6 % (36.0-47.0); Mean Corpuscular HGB CONC 33.8 g/dL (32.0-36.0); Mean Corpuscular Hemoglobin 33.4 pg (27.0-31.0); Platelet Count 158 10x3/uL (130-400); RBC Distribution Width 13.1 % (11.5-14.5); Red Blood Cell (RBC) Count 2.99 mill/uL (4.20-5.40); White Blood Cell (WBC) Count 15.3 10x3/uL (4.8-10.8)
[2023-01-28 05:16] LABS: Anion Gap 11 mmol/L (10-20); BUN (Urea Nitrogen) 7 mg/dL (9.8-20.1); Calc. Creatinine Clearance 58 mL/min (70-130); Calcium 8.3 mg/dL (7.8-10.44); Carbon Dioxide 22 mmol/L (23-31); Chloride 104 mmol/L (98-107); Estimated GFR 91; Glucose 121 mg/dL (83-110); Potassium 3.8 mmol/L (3.5-5.1); Sodium 133 mmol/L (136-145)
[2023-01-28 05:20] LABS: PTT 153.9 sec (22.9-36.1)
[2023-01-28] MEDS: Levothyroxine Sodium 75 MCG TAB PO SCH (05:29)
[2023-01-28] MEDS: HYDROmorphone/PF 10 MG in Sodium Chloride 0.9% 99 ML IVPB PRN (10:08)
[2023-01-28] MEDS: Baclofen 10 MG TAB PO SCH ×3 (10:57→20:28)
[2023-01-28] MEDS: Lisinopril 20 MG TAB PO SCH (10:57)
[2023-01-28] MEDS: Carbidopa/Levodopa 25-100 mg Tablet PO SCH ×3 (10:57→20:28)
[2023-01-28] MEDS: Docusate 100 MG CAP PO SCH ×2 (10:57→20:54)
[2023-01-28] MEDS: ALPRAZolam 0.5 MG TAB PO SCH ×2 (10:57→20:28)
[2023-01-28] MEDS: Nystatin 500,000 UNITS/5 ML UDCUP SSW SCH ×4 (10:58→20:29)
[2023-01-28] MEDS: levETIRAcetam 500 MG/5 ML VIAL SLOW IVP SCH ×2 (10:58→20:29)
[2023-01-28] MEDS: Topiramate 100 MG TAB PO SCH (10:58)
[2023-01-28] MEDS: Polyethylene Glycol 3350 17 GM Packet PO SCH (10:59)
[2023-01-28] MEDS ORDERED: Pregabalin 25 MG CAP PO SCH ×2 (12:00→21:00)
[2023-01-28] MEDS ORDERED: Communication Order-Pharmacy FS SCH (17:45)
[2023-01-28 20:15] LABS: Hematocrit 29.2 % (36.0-47.0); Hemoglobin 9.7 g/dL (12.0-16.0); Platelet Count 138 10x3/uL (130-400)
[2023-01-28] MEDS: Atorvastatin Calcium 20 MG TAB PO SCH (20:28)
[2023-01-28] MEDS: Pregabalin 25 MG CAP PO SCH (20:29)
[2023-01-28] MEDS: ADMIXTURE FEE IVPB SCH (22:45)
[2023-01-28] MEDS: SODIUM CHLORIDE IVPB SCH (22:45)
[2023-01-28] MEDS: CEFAZOLIN IVPB SCH (22:45)
[2023-01-29] MEDS: Acetaminophen 325 MG TAB PO SCH ×4 (02:49→16:33)
[2023-01-29] MEDS ORDERED: Pregabalin 50 MG CAP PO SCH (04:00)
[2023-01-29] MEDS: Levothyroxine Sodium 50 MCG TAB PO SCH (04:49)
[2023-01-29 07:36] LABS: #Eosinphils 0.2 thou/uL (0.0-0.7); #Monocytes 0.6 thou/uL (0.11-0.59); #Neutrophils 8.3 thou/uL (1.40-6.50); %Basophils 0.1 % (0.0-1.0); %Eosinophils 1.5 % (0.0-10.0); %Lymphocytes 16.8 % (21.0-51.0); %Monocytes 5.5 % (0.0-10.0); %Neutrophils 75.4 % (42.0-75.0); Hematocrit 29.8 % (36.0-47.0); Hemoglobin 9.8 g/dL (12.0-16.0); Mean Corpuscular HGB CONC 32.9 g/dL (32.0-36.0); Mean Corpuscular Hemoglobin 32.9 pg (27.0-31.0); Mean Platelet Volume 10.6 fL (7.4-10.4); Platelet Count 160 10x3/uL (130-400); Red Blood Cell (RBC) Count 2.98 mill/uL (4.20-5.40)
[2023-01-29] MEDS: Topiramate 100 MG TAB PO SCH (09:33)
[2023-01-29] MEDS: Lisinopril 20 MG TAB PO SCH (09:33)
[2023-01-29] MEDS: Polyethylene Glycol 3350 17 GM Packet PO SCH (09:33)
[2023-01-29] MEDS: Nystatin 500,000 UNITS/5 ML UDCUP SSW SCH ×5 (09:34→21:43)
[2023-01-29] MEDS: Baclofen 10 MG TAB PO SCH ×3 (09:34→21:43)
[2023-01-29] MEDS: ALPRAZolam 0.5 MG TAB PO SCH ×2 (09:34→21:43)
[2023-01-29] MEDS: levETIRAcetam 500 MG/5 ML VIAL SLOW IVP SCH ×2 (09:37→21:44)
[2023-01-29] MEDS: Carbidopa/Levodopa 25-100 mg Tablet PO SCH ×3 (10:12→21:42)
[2023-01-29] MEDS: Docusate 100 MG CAP PO SCH ×2 (10:12→21:43)
[2023-01-29] MEDS: HYDROmorphone/PF 10 MG in Sodium Chloride 0.9% 99 ML IVPB PRN (10:15)
[2023-01-29] MEDS: Pregabalin 25 MG CAP PO SCH ×3 (10:24→21:42)
[2023-01-29] MEDS: Oxacillin 2 GM in Sodium Chloride 0.9% 100 ML IVPB SCH ×3 (14:13→21:44)
[2023-01-29] MEDS: Dextrose 5 %-0.45 % NaCl 1,000 ML IV SCH (17:28)
[2023-01-29] MEDS: Atorvastatin Calcium 20 MG TAB PO SCH (21:43)
[2023-01-30] MEDS: Acetaminophen 325 MG TAB PO SCH ×4 (00:39→17:17)
[2023-01-30] MEDS: Oxacillin 2 GM in Sodium Chloride 0.9% 100 ML IVPB SCH ×6 (00:39→21:03)
[2023-01-30 04:39] LABS: #Basophils 0.1 thou/uL (0.0-0.2); #Eosinphils 0.2 thou/uL (0.0-0.7); #Monocytes 0.9 thou/uL (0.11-0.59); #Neutrophils 13.5 thou/uL (1.40-6.50); %Basophils 0.3 % (0.0-1.0); %Eosinophils 1.4 % (0.0-10.0); %Lymphocytes 12.5 % (21.0-51.0); %Monocytes 5.1 % (0.0-10.0); %Neutrophils 79.9 % (42.0-75.0); Hemoglobin 10.2 g/dL (12.0-16.0); Mean Corpuscular HGB CONC 31.9 g/dL (32.0-36.0); Mean Corpuscular Hemoglobin 32.9 pg (27.0-31.0); Mean Platelet Volume 10.8 fL (7.4-10.4); Platelet Count 196 10x3/uL (130-400); RBC Distribution Width 12.9 % (11.5-14.5); White Blood Cell (WBC) Count 16.9 10x3/uL (4.8-10.8)
[2023-01-30 04:57] LABS: Mean Corpuscular Volume 103.2 fl (78.0-98.0)
[2023-01-30] MEDS: Levothyroxine Sodium 75 MCG TAB PO SCH (06:44)
[2023-01-30] MEDS: Baclofen 10 MG TAB PO SCH ×3 (08:48→21:06)
[2023-01-30] MEDS: Docusate 100 MG CAP PO SCH (08:48)
[2023-01-30] MEDS: levETIRAcetam 500 MG/5 ML VIAL SLOW IVP SCH ×2 (08:48→21:05)
[2023-01-30] MEDS: Nystatin 500,000 UNITS/5 ML UDCUP SSW SCH ×4 (08:48→21:05)
[2023-01-30] MEDS: ALPRAZolam 0.5 MG TAB PO SCH ×2 (08:48→21:05)
[2023-01-30] MEDS: Lisinopril 20 MG TAB PO SCH (08:48)
[2023-01-30] MEDS: Topiramate 100 MG TAB PO SCH (08:48)
[2023-01-30] MEDS: Polyethylene Glycol 3350 17 GM Packet PO SCH (08:49)
[2023-01-30] MEDS: Docusate Sodium 100 MG/10 ML UDCUP PO SCH ×2 (10:13→21:06)
[2023-01-30] MEDS: Pregabalin 25 MG CAP PO SCH ×2 (10:13→21:11)
[2023-01-30] MEDS: Carbidopa/Levodopa 25-100 mg Tablet PO SCH ×3 (10:46→21:06)
[2023-01-30] MEDS: Dextrose 5 %-0.45 % NaCl 1,000 ML IV SCH (13:01)
[2023-01-30] MEDS ORDERED: Pregabalin 50 MG CAP PO SCH (21:00)
[2023-01-30] MEDS: Atorvastatin Calcium 20 MG TAB PO SCH (21:05)
[2023-01-31] MEDS: Oxacillin 2 GM in Sodium Chloride 0.9% 100 ML IVPB SCH ×6 (00:13→20:50)
[2023-01-31] MEDS: Acetaminophen 325 MG TAB PO SCH ×5 (00:31→23:25)
[2023-01-31 05:39] LABS: #Eosinphils 0.2 thou/uL (0.0-0.7); #Monocytes 0.7 thou/uL (0.11-0.59); #Neutrophils 9.3 thou/uL (1.40-6.50); %Basophils 0.2 % (0.0-1.0); %Eosinophils 1.7 % (0.0-10.0); %Lymphocytes 15.7 % (21.0-51.0); %Monocytes 5.9 % (0.0-10.0); %Neutrophils 75.8 % (42.0-75.0); Hematocrit 27.5 % (36.0-47.0); Hemoglobin 8.9 g/dL (12.0-16.0); Mean Corpuscular HGB CONC 32.4 g/dL (32.0-36.0); Mean Corpuscular Hemoglobin 33.3 pg (27.0-31.0); Mean Platelet Volume 10.2 fL (7.4-10.4); Platelet Count 245 10x3/uL (130-400); RBC Distribution Width 12.9 % (11.5-14.5); Red Blood Cell (RBC) Count 2.67 mill/uL (4.20-5.40); White Blood Cell (WBC) Count 12.3 10x3/uL (4.8-10.8)
[2023-01-31] MEDS: Levothyroxine Sodium 50 MCG TAB PO SCH (05:44)
[2023-01-31 06:07] LABS: Anion Gap 11 mmol/L (10-20); BUN (Urea Nitrogen) 7 mg/dL (9.8-20.1); Calc. Creatinine Clearance 53 mL/min (70-130); Calcium 8.6 mg/dL (7.8-10.44); Carbon Dioxide 23 mmol/L (23-31); Chloride 105 mmol/L (98-107); Estimated GFR 89; Glucose 110 mg/dL (83-110); Potassium 3.2 mmol/L (3.5-5.1); Sodium 136 mmol/L (136-145)
[2023-01-31] MEDS ORDERED: Pregabalin 25 MG CAP PO SCH (09:00)
[2023-01-31] MEDS: Baclofen 10 MG TAB PO SCH ×3 (09:09→20:53)
[2023-01-31] MEDS: ALPRAZolam 0.5 MG TAB PO SCH ×2 (09:09→20:53)
[2023-01-31] MEDS: Docusate Sodium 100 MG/10 ML UDCUP PO SCH ×2 (09:10→21:10)
[2023-01-31] MEDS: Topiramate 100 MG TAB PO SCH (09:10)
[2023-01-31] MEDS: Carbidopa/Levodopa 25-100 mg Tablet PO SCH ×3 (09:11→21:09)
[2023-01-31] MEDS: Nystatin 500,000 UNITS/5 ML UDCUP SSW SCH ×4 (09:12→21:10)
[2023-01-31] MEDS: levETIRAcetam 500 MG/5 ML VIAL SLOW IVP SCH ×2 (09:12→21:12)
[2023-01-31] MEDS: Lisinopril 20 MG TAB PO SCH (09:15)
[2023-01-31] MEDS: Pregabalin 25 MG CAP PO SCH ×3 (09:20→21:17)
[2023-01-31] MEDS: Dextrose 5 %-0.45 % NaCl 1,000 ML IV SCH ×2 (09:44→20:47)
[2023-01-31] MEDS: Polyethylene Glycol 3350 17 GM Packet PO SCH (10:15)
[2023-01-31] MEDS ORDERED: Potassium Chloride 20 MEQ TAB PO SCH (17:00)
[2023-01-31] MEDS: fentaNYL 50 mcg/mL 1 mL Vial SLOW IVP PRN (21:02)
[2023-01-31] MEDS: Atorvastatin Calcium 20 MG TAB PO SCH (21:09)
[2023-01-31] MEDS: Senokot S 8.6-50 MG TAB PO SCH (21:09)
[2023-01-31 22:37] LABS: Potassium 3.2 mmol/L (3.5-5.1)
[2023-02-01] MEDS ORDERED: Potassium Chloride 20 MEQ TAB PO SCH (00:30)
[2023-02-01] MEDS: Oxacillin 2 GM in Sodium Chloride 0.9% 100 ML IVPB SCH ×6 (00:43→20:38)
[2023-02-01] MEDS: fentaNYL 50 mcg/mL 1 mL Vial SLOW IVP PRN ×8 (01:49→23:29)
[2023-02-01] MEDS: Levothyroxine Sodium 75 MCG TAB PO SCH (05:13)
[2023-02-01] MEDS: Acetaminophen 325 MG TAB PO SCH ×4 (05:13→23:36)
[2023-02-01 05:47] LABS: #Eosinphils 0.1 thou/uL (0.0-0.7); #Monocytes 0.6 thou/uL (0.11-0.59); #Neutrophils 7.2 thou/uL (1.40-6.50); %Basophils 0.2 % (0.0-1.0); %Eosinophils 0.8 % (0.0-10.0); %Lymphocytes 14.7 % (21.0-51.0); %Neutrophils 77.9 % (42.0-75.0); Hematocrit 26.4 % (36.0-47.0); Hemoglobin 8.5 g/dL (12.0-16.0); Mean Corpuscular HGB CONC 32.2 g/dL (32.0-36.0); Mean Corpuscular Hemoglobin 32.7 pg (27.0-31.0); Mean Corpuscular Volume 101.5 fl (78.0-98.0); Platelet Count 230 10x3/uL (130-400); RBC Distribution Width 12.7 % (11.5-14.5); White Blood Cell (WBC) Count 9.2 10x3/uL (4.8-10.8)
[2023-02-01] MEDS: levETIRAcetam 500 MG/5 ML VIAL SLOW IVP SCH ×2 (09:15→20:42)
[2023-02-01] MEDS: Lisinopril 20 MG TAB PO SCH (10:55)
[2023-02-01] MEDS: Senokot S 8.6-50 MG TAB PO SCH ×2 (10:56→20:40)
[2023-02-01] MEDS: Carbidopa/Levodopa 25-100 mg Tablet PO SCH ×3 (10:56→20:40)
[2023-02-01] MEDS: Pregabalin 25 MG CAP PO SCH (10:56)
[2023-02-01] MEDS: ALPRAZolam 0.5 MG TAB PO SCH ×2 (10:56→20:42)
[2023-02-01] MEDS: Docusate Sodium 100 MG/10 ML UDCUP PO SCH ×2 (10:57→20:41)
[2023-02-01] MEDS: Nystatin 500,000 UNITS/5 ML UDCUP SSW SCH ×4 (10:57→20:42)
[2023-02-01] MEDS: Baclofen 10 MG TAB PO SCH ×3 (10:57→20:40)
[2023-02-01] MEDS: Polyethylene Glycol 3350 17 GM Packet PO SCH (11:18)
[2023-02-01] MEDS: Topiramate 100 MG TAB PO SCH (11:18)
[2023-02-01] MEDS ORDERED: Pregabalin 25 MG CAP PO SCH (11:30)
[2023-02-01] MEDS ORDERED: D5W-AA 4.25% with LYTES 1,000 ML IV SCH (12:30)
[2023-02-01] MEDS: D5W-AA 4.25% with LYTES 1,000 ML IV SCH (14:34)
[2023-02-01] MEDS: Pregabalin 50 MG CAP PO SCH ×3 (16:20→21:54)
[2023-02-01] MEDS: Atorvastatin Calcium 20 MG TAB PO SCH (20:40)
[2023-02-01] MEDS: Dextrose 5 %-0.45 % NaCl 1,000 ML IV SCH (23:37)
[2023-02-02] MEDS: fentaNYL 50 mcg/mL 1 mL Vial SLOW IVP PRN ×7 (01:03→22:52)
[2023-02-02] MEDS: Oxacillin 2 GM in Sodium Chloride 0.9% 100 ML IVPB SCH ×6 (01:04→21:22)
[2023-02-02] MEDS: D5W-AA 4.25% with LYTES 1,000 ML IV SCH ×2 (01:20→12:09)
[2023-02-02] MEDS ORDERED: Ketorolac Tromethamine 30 MG/ML VIAL IVP SCH (02:30)
[2023-02-02] MEDS: Levothyroxine Sodium 50 MCG TAB PO SCH (05:14)
[2023-02-02] MEDS: Acetaminophen 325 MG TAB PO SCH ×3 (05:27→18:38)
[2023-02-02 05:38] LABS: ALT (SGPT) Less than 7 U/L (8-55); AST (SGOT) 13 U/L (5-34); Albumin 2.5 g/dL (3.4-4.8); Alkaline Phosphatase 140 U/L (40-110); Anion Gap 7 mmol/L (10-20); BUN (Urea Nitrogen) 16 mg/dL (9.8-20.1); Bilirubin, Total Less than 0.2 mg/dL (0.2-1.2); Calc. Creatinine Clearance 60 mL/min (70-130); Calcium 8.6 mg/dL (7.8-10.44); Carbon Dioxide 22 mmol/L (23-31); Chloride 109 mmol/L (98-107); Estimated GFR 92; Globulin 3.7 g/dL (2.4-3.5); Glucose 126 mg/dL (83-110); Magnesium 2.2 mg/dL (1.6-2.6); Phosphorus 2.6 mg/dL (2.3-4.7); Potassium 3.3 mmol/L (3.5-5.1); Protein, Total 6.2 g/dL (5.8-8.1); Sodium 135 mmol/L (136-145)
[2023-02-02] MEDS: Topiramate 100 MG TAB PO SCH (08:27)
[2023-02-02] MEDS: Pregabalin 50 MG CAP PO SCH ×3 (08:27→21:21)
[2023-02-02] MEDS: Carbidopa/Levodopa 25-100 mg Tablet PO SCH ×3 (08:27→21:24)
[2023-02-02] MEDS: Senokot S 8.6-50 MG TAB PO SCH ×2 (08:28→21:20)
[2023-02-02] MEDS: Baclofen 10 MG TAB PO SCH ×3 (08:28→21:20)
[2023-02-02] MEDS: levETIRAcetam 500 MG/5 ML VIAL SLOW IVP SCH ×2 (08:28→21:23)
[2023-02-02] MEDS: ALPRAZolam 0.5 MG TAB PO SCH ×2 (08:28→21:20)
[2023-02-02] MEDS: Lisinopril 20 MG TAB PO SCH (08:28)
[2023-02-02] MEDS: Nystatin 500,000 UNITS/5 ML UDCUP SSW SCH ×4 (08:29→21:00)
[2023-02-02] MEDS: Docusate Sodium 100 MG/10 ML UDCUP PO SCH ×3 (08:29→21:18)
[2023-02-02] MEDS: Potassium Chloride 20 MEQ in Premix 1 BAG IVPB SCH ×2 (08:44→17:14)
[2023-02-02] MEDS: Polyethylene Glycol 3350 17 GM Packet PO SCH (08:51)
[2023-02-02] MEDS ORDERED: fentaNYL 50 mcg/hour Patch TD SCH ×3 (15:00→16:00)
[2023-02-02] MEDS ORDERED: Potassium Chloride 20 MEQ in Premix 1 BAG IVPB SCH (16:00)
[2023-02-02] MEDS: fentaNYL 50 mcg/hour Patch TD SCH (16:03)
[2023-02-02] MEDS: Atorvastatin Calcium 20 MG TAB PO SCH (21:24)
[2023-02-03] MEDS: Acetaminophen 325 MG TAB PO SCH ×5 (01:04→17:48)
[2023-02-03] MEDS: Oxacillin 2 GM in Sodium Chloride 0.9% 100 ML IVPB SCH ×7 (01:05→21:07)
[2023-02-03] MEDS: D5W-AA 4.25% with LYTES 1,000 ML IV SCH ×3 (01:06→16:48)
[2023-02-03] MEDS: fentaNYL 50 mcg/mL 1 mL Vial SLOW IVP PRN ×9 (01:19→20:02)
[2023-02-03 05:51] LABS: #Eosinphils 0.2 thou/uL (0.0-0.7); #Monocytes 0.3 thou/uL (0.11-0.59); #Neutrophils 2.9 thou/uL (1.40-6.50); %Basophils 0.5 % (0.0-1.0); %Eosinophils 4.4 % (0.0-10.0); %Lymphocytes 35.6 % (21.0-51.0); %Monocytes 6.2 % (0.0-10.0); %Neutrophils 52.9 % (42.0-75.0); Hematocrit 27.4 % (36.0-47.0); Hemoglobin 8.9 g/dL (12.0-16.0); Mean Corpuscular HGB CONC 32.5 g/dL (32.0-36.0); Mean Corpuscular Hemoglobin 32.6 pg (27.0-31.0); Mean Corpuscular Volume 100.4 fl (78.0-98.0); Mean Platelet Volume 9.3 fL (7.4-10.4); Platelet Count 276 10x3/uL (130-400); RBC Distribution Width 12.5 % (11.5-14.5); Red Blood Cell (RBC) Count 2.73 mill/uL (4.20-5.40); White Blood Cell (WBC) Count 5.5 10x3/uL (4.8-10.8)
[2023-02-03] MEDS: Levothyroxine Sodium 75 MCG TAB PO SCH (06:00)
[2023-02-03 07:27] LABS: ALT (SGPT) Less than 7 U/L (8-55); AST (SGOT) 18 U/L (5-34); Albumin 2.6 g/dL (3.4-4.8); Alkaline Phosphatase 122 U/L (40-110); Anion Gap 11 mmol/L (10-20); BUN (Urea Nitrogen) 21 mg/dL (9.8-20.1); Bilirubin, Total Less than 0.2 mg/dL (0.2-1.2); Calc. Creatinine Clearance 62 mL/min (70-130); Calcium 8.6 mg/dL (7.8-10.44); Carbon Dioxide 20 mmol/L (23-31); Chloride 109 mmol/L (98-107); Estimated GFR 92; Globulin 3.7 g/dL (2.4-3.5); Glucose 107 mg/dL (83-110); Magnesium 2.2 mg/dL (1.6-2.6); Phosphorus 3.2 mg/dL (2.3-4.7); Potassium 3.9 mmol/L (3.5-5.1); Protein, Total 6.3 g/dL (5.8-8.1); Sodium 136 mmol/L (136-145)
[2023-02-03] MEDS: ALPRAZolam 0.5 MG TAB PO SCH ×2 (09:04→21:10)
[2023-02-03] MEDS: Pregabalin 50 MG CAP PO SCH ×3 (09:04→21:09)
[2023-02-03] MEDS: Ondansetron PF 4 MG/2 ML Vial IVP PRN (09:05)
[2023-02-03] MEDS: levETIRAcetam 500 MG/5 ML VIAL SLOW IVP SCH ×2 (10:55→21:08)
[2023-02-03] MEDS: Senokot S 8.6-50 MG TAB PO SCH ×2 (10:59→21:08)
[2023-02-03] MEDS: Carbidopa/Levodopa 25-100 mg Tablet PO SCH ×3 (11:00→21:09)
[2023-02-03] MEDS: Baclofen 10 MG TAB PO SCH ×3 (11:00→21:08)
[2023-02-03] MEDS: Nystatin 500,000 UNITS/5 ML UDCUP SSW SCH ×4 (11:06→21:07)
[2023-02-03] MEDS: Docusate Sodium 100 MG/10 ML UDCUP PO SCH ×2 (11:07→21:07)
[2023-02-03] MEDS: Lisinopril 20 MG TAB PO SCH (11:18)
[2023-02-03] MEDS: Polyethylene Glycol 3350 17 GM Packet PO SCH (11:36)
[2023-02-03] MEDS: Topiramate 100 MG TAB PO SCH (11:36)
[2023-02-03] MEDS ORDERED: valACYclovir 500 MG TAB PO SCH (16:00)
[2023-02-03] MEDS: Atorvastatin Calcium 20 MG TAB PO SCH (21:08)
[2023-02-03] MEDS: Apixaban 5 MG TAB PO SCH (21:10)
[2023-02-04] MEDS: Oxacillin 2 GM in Sodium Chloride 0.9% 100 ML IVPB SCH ×6 (01:04→21:08)
[2023-02-04] MEDS: Acetaminophen 325 MG TAB PO SCH ×4 (01:13→17:07)
[2023-02-04] MEDS: D5W-AA 4.25% with LYTES 1,000 ML IV SCH ×2 (02:55→13:52)
[2023-02-04] MEDS: fentaNYL 50 mcg/mL 1 mL Vial SLOW IVP PRN ×7 (03:01→23:42)
[2023-02-04] MEDS: Levothyroxine Sodium 50 MCG TAB PO SCH (05:05)
[2023-02-04] MEDS: levETIRAcetam 500 MG/5 ML VIAL SLOW IVP SCH ×2 (09:08→21:07)
[2023-02-04] MEDS: Nystatin 500,000 UNITS/5 ML UDCUP SSW SCH ×4 (09:09→21:06)
[2023-02-04] MEDS: Pregabalin 50 MG CAP PO SCH ×3 (09:10→21:04)
[2023-02-04] MEDS: valACYclovir 500 MG TAB PO SCH ×2 (09:11→21:02)
[2023-02-04] MEDS: Lisinopril 20 MG TAB PO SCH (09:11)
[2023-02-04] MEDS: ALPRAZolam 0.5 MG TAB PO SCH ×2 (09:11→21:05)
[2023-02-04] MEDS: Topiramate 100 MG TAB PO SCH (09:11)
[2023-02-04] MEDS: Carbidopa/Levodopa 25-100 mg Tablet PO SCH ×3 (09:12→21:04)
[2023-02-04] MEDS: Baclofen 10 MG TAB PO SCH ×3 (09:12→21:03)
[2023-02-04] MEDS: Apixaban 5 MG TAB PO SCH ×2 (09:12→21:03)
[2023-02-04] MEDS: Docusate Sodium 100 MG/10 ML UDCUP PO SCH ×2 (09:13→21:07)
[2023-02-04] MEDS: Polyethylene Glycol 3350 17 GM Packet PO SCH (09:13)
[2023-02-04] MEDS: Senokot S 8.6-50 MG TAB PO SCH ×2 (09:14→21:02)
[2023-02-04 11:29] LABS: #Eosinphils 0.1 thou/uL (0.0-0.7); #Monocytes 0.4 thou/uL (0.11-0.59); #Neutrophils 5.1 thou/uL (1.40-6.50); %Basophils 0.4 % (0.0-1.0); %Eosinophils 1.5 % (0.0-10.0); %Lymphocytes 22.1 % (21.0-51.0); %Monocytes 5.7 % (0.0-10.0); %Neutrophils 69.9 % (42.0-75.0); Hematocrit 26.6 % (36.0-47.0); Hemoglobin 8.7 g/dL (12.0-16.0); Mean Corpuscular HGB CONC 32.7 g/dL (32.0-36.0); Mean Corpuscular Volume 100.8 fl (78.0-98.0); Mean Platelet Volume 9.1 fL (7.4-10.4); Platelet Count 302 10x3/uL (130-400); RBC Distribution Width 12.6 % (11.5-14.5); Red Blood Cell (RBC) Count 2.64 mill/uL (4.20-5.40); White Blood Cell (WBC) Count 7.2 10x3/uL (4.8-10.8)
[2023-02-04 11:51] LABS: ALT (SGPT) Less than 7 U/L (8-55); AST (SGOT) 20 U/L (5-34); Alkaline Phosphatase 119 U/L (40-110); Anion Gap 12 mmol/L (10-20); BUN (Urea Nitrogen) 20 mg/dL (9.8-20.1); Bilirubin, Total Less than 0.2 mg/dL (0.2-1.2); Calc. Creatinine Clearance 57 mL/min (70-130); Carbon Dioxide 22 mmol/L (23-31); Chloride 107 mmol/L (98-107); Estimated GFR 91; Globulin 4.2 g/dL (2.4-3.5); Glucose 110 mg/dL (83-110); Magnesium 2.2 mg/dL (1.6-2.6); Phosphorus 3.5 mg/dL (2.3-4.7); Potassium 4.1 mmol/L (3.5-5.1); Protein, Total 7.2 g/dL (5.8-8.1); Sodium 137 mmol/L (136-145)
[2023-02-04] MEDS ORDERED: Simethicone Chewable 80 MG TAB PO PRN (15:34)
[2023-02-04] MEDS ORDERED: Naloxegol 12.5 MG TAB PO SCH (16:00)
[2023-02-04] MEDS: Atorvastatin Calcium 20 MG TAB PO SCH (21:02)
[2023-02-04] MEDS: Megestrol Acetate 40 MG TAB PO SCH (21:04)
[2023-02-05] MEDS: AA 4.25 %/CALCIUM/LYTES/D5W 2,000 ML IV SCH ×2 (00:13→19:36)
[2023-02-05] MEDS: D5W-AA 4.25% with LYTES 1,000 ML IV SCH (00:14)
[2023-02-05] MEDS: Acetaminophen 325 MG TAB PO SCH ×4 (00:16→18:04)
[2023-02-05] MEDS: Oxacillin 2 GM in Sodium Chloride 0.9% 100 ML IVPB SCH ×6 (01:13→21:12)
[2023-02-05] MEDS: fentaNYL 50 mcg/mL 1 mL Vial SLOW IVP PRN ×7 (01:42→21:03)
[2023-02-05] MEDS: Levothyroxine Sodium 75 MCG TAB PO SCH (05:51)
[2023-02-05 06:13] LABS: #Eosinphils 0.3 thou/uL (0.0-0.7); #Monocytes 0.5 thou/uL (0.11-0.59); #Neutrophils 4.2 thou/uL (1.40-6.50); %Basophils 0.4 % (0.0-1.0); %Eosinophils 3.7 % (0.0-10.0); %Lymphocytes 31.4 % (21.0-51.0); %Monocytes 7.2 % (0.0-10.0); Hematocrit 26.7 % (36.0-47.0); Hemoglobin 8.7 g/dL (12.0-16.0); Mean Corpuscular HGB CONC 32.6 g/dL (32.0-36.0); Mean Corpuscular Hemoglobin 32.8 pg (27.0-31.0); Mean Corpuscular Volume 100.8 fl (78.0-98.0); Mean Platelet Volume 9.3 fL (7.4-10.4); Platelet Count 305 10x3/uL (130-400); RBC Distribution Width 12.7 % (11.5-14.5); Red Blood Cell (RBC) Count 2.65 mill/uL (4.20-5.40); White Blood Cell (WBC) Count 7.4 10x3/uL (4.8-10.8)
[2023-02-05 07:24] LABS: ALT (SGPT) Less than 7 U/L (8-55); AST (SGOT) 24 U/L (5-34); Alkaline Phosphatase 105 U/L (40-110); Anion Gap 14 mmol/L (10-20); BUN (Urea Nitrogen) 25 mg/dL (9.8-20.1); Bilirubin, Total 0.2 mg/dL (0.2-1.2); Calc. Creatinine Clearance 56 mL/min (70-130); Carbon Dioxide 20 mmol/L (23-31); Chloride 107 mmol/L (98-107); Estimated GFR 90; Globulin 4.3 g/dL (2.4-3.5); Glucose 111 mg/dL (83-110); Magnesium 2.3 mg/dL (1.6-2.6); Phosphorus 3.3 mg/dL (2.3-4.7); Protein, Total 7.3 g/dL (5.8-8.1); Sodium 137 mmol/L (136-145)
[2023-02-05] MEDS: Carbidopa/Levodopa 25-100 mg Tablet PO SCH ×3 (08:22→21:16)
[2023-02-05] MEDS: Naloxegol 12.5 MG TAB PO SCH (08:22)
[2023-02-05] MEDS: Megestrol Acetate 40 MG TAB PO SCH ×2 (08:22→21:17)
[2023-02-05] MEDS: Baclofen 10 MG TAB PO SCH ×3 (08:22→21:16)
[2023-02-05] MEDS: Topiramate 100 MG TAB PO SCH (08:22)
[2023-02-05] MEDS: Apixaban 5 MG TAB PO SCH ×2 (08:22→21:16)
[2023-02-05] MEDS: valACYclovir 500 MG TAB PO SCH ×2 (08:22→21:16)
[2023-02-05] MEDS: Pregabalin 50 MG CAP PO SCH ×3 (08:22→21:17)
[2023-02-05] MEDS: ALPRAZolam 0.5 MG TAB PO SCH ×2 (08:22→21:16)
[2023-02-05] MEDS: Lisinopril 20 MG TAB PO SCH (08:23)
[2023-02-05] MEDS: Senokot S 8.6-50 MG TAB PO SCH ×2 (08:23→21:00)
[2023-02-05] MEDS: Docusate Sodium 100 MG/10 ML UDCUP PO SCH ×2 (08:25→21:17)
[2023-02-05] MEDS: Nystatin 500,000 UNITS/5 ML UDCUP SSW SCH ×4 (08:25→21:17)
[2023-02-05] MEDS: levETIRAcetam 500 MG/5 ML VIAL SLOW IVP SCH ×2 (08:25→21:18)
[2023-02-05] MEDS: Polyethylene Glycol 3350 17 GM Packet PO SCH (08:26)
[2023-02-05] MEDS: fentaNYL 50 mcg/hour Patch TD SCH (16:08)
[2023-02-05] MEDS: Atorvastatin Calcium 20 MG TAB PO SCH (21:18)
[2023-02-06] MEDS: fentaNYL 50 mcg/mL 1 mL Vial SLOW IVP PRN ×6 (00:36→20:48)
[2023-02-06] MEDS: Oxacillin 2 GM in Sodium Chloride 0.9% 100 ML IVPB SCH ×6 (00:37→20:48)
[2023-02-06] MEDS: Acetaminophen 325 MG TAB PO SCH ×4 (00:48→17:53)
[2023-02-06] MEDS: Levothyroxine Sodium 50 MCG TAB PO SCH (05:30)
[2023-02-06] MEDS: levETIRAcetam 500 MG/5 ML VIAL SLOW IVP SCH ×2 (09:14→20:44)
[2023-02-06] MEDS: valACYclovir 500 MG TAB PO SCH ×2 (09:15→20:45)
[2023-02-06] MEDS: Baclofen 10 MG TAB PO SCH ×3 (09:16→20:46)
[2023-02-06] MEDS: Lisinopril 20 MG TAB PO SCH (09:16)
[2023-02-06] MEDS: Senokot S 8.6-50 MG TAB PO SCH ×2 (09:16→20:46)
[2023-02-06] MEDS: ALPRAZolam 0.5 MG TAB PO SCH ×2 (09:16→20:46)
[2023-02-06] MEDS: Naloxegol 12.5 MG TAB PO SCH (09:16)
[2023-02-06] MEDS: Pregabalin 50 MG CAP PO SCH ×3 (09:17→20:45)
[2023-02-06] MEDS: Apixaban 5 MG TAB PO SCH ×2 (09:18→20:46)
[2023-02-06] MEDS: Nystatin 500,000 UNITS/5 ML UDCUP SSW SCH ×4 (09:19→20:47)
[2023-02-06] MEDS: Megestrol Acetate 40 MG TAB PO SCH ×2 (09:19→20:47)
[2023-02-06] MEDS: Carbidopa/Levodopa 25-100 mg Tablet PO SCH ×3 (09:19→20:46)
[2023-02-06] MEDS: Topiramate 100 MG TAB PO SCH (09:19)
[2023-02-06] MEDS: Polyethylene Glycol 3350 17 GM Packet PO SCH (11:58)
[2023-02-06] MEDS: Docusate Sodium 100 MG/10 ML UDCUP PO SCH ×2 (11:58→12:31)
[2023-02-06 13:35] LABS: #Eosinphils 0.2 thou/uL (0.0-0.7); #Monocytes 0.4 thou/uL (0.11-0.59); #Neutrophils 5.5 thou/uL (1.40-6.50); %Basophils 0.2 % (0.0-1.0); %Lymphocytes 23.1 % (21.0-51.0); %Neutrophils 68.2 % (42.0-75.0); Hematocrit 27.8 % (36.0-47.0); Mean Corpuscular HGB CONC 32.4 g/dL (32.0-36.0); Mean Corpuscular Hemoglobin 32.6 pg (27.0-31.0); Mean Corpuscular Volume 100.7 fl (78.0-98.0); Mean Platelet Volume 9.5 fL (7.4-10.4); Platelet Count 330 10x3/uL (130-400); RBC Distribution Width 12.8 % (11.5-14.5); Red Blood Cell (RBC) Count 2.76 mill/uL (4.20-5.40); White Blood Cell (WBC) Count 8.1 10x3/uL (4.8-10.8)
[2023-02-06 13:58] LABS: Anion Gap 15 mmol/L (10-20); BUN (Urea Nitrogen) 26 mg/dL (9.8-20.1); CRP (Inflammatory) 4.13 mg/dL (= or < 0.5); Calc. Creatinine Clearance 55 mL/min (70-130); Calcium 9.4 mg/dL (7.8-10.44); Carbon Dioxide 18 mmol/L (23-31); Chloride 107 mmol/L (98-107); Estimated GFR 90; Glucose 119 mg/dL (83-110); Potassium 3.7 mmol/L (3.5-5.1); Sodium 136 mmol/L (136-145)
[2023-02-06] MEDS: Ondansetron PF 4 MG/2 ML Vial IVP PRN (16:04)
[2023-02-06] MEDS: AA 4.25 %/CALCIUM/LYTES/D5W 2,000 ML IV SCH (16:10)
[2023-02-06] MEDS: Atorvastatin Calcium 20 MG TAB PO SCH (20:46)
[2023-02-07] MEDS: Oxacillin 2 GM in Sodium Chloride 0.9% 100 ML IVPB SCH ×6 (01:01→22:48)
[2023-02-07] MEDS: Acetaminophen 325 MG TAB PO SCH ×5 (01:05→23:30)
[2023-02-07] MEDS: fentaNYL 50 mcg/mL 1 mL Vial SLOW IVP PRN ×6 (01:05→23:29)
[2023-02-07] MEDS: Levothyroxine Sodium 75 MCG TAB PO SCH (05:05)
[2023-02-07 06:01] LABS: #Eosinphils 0.3 thou/uL (0.0-0.7); #Monocytes 0.5 thou/uL (0.11-0.59); #Neutrophils 3.5 thou/uL (1.40-6.50); %Basophils 0.6 % (0.0-1.0); %Eosinophils 4.8 % (0.0-10.0); %Lymphocytes 35.9 % (21.0-51.0); %Neutrophils 51.1 % (42.0-75.0); Hematocrit 25.2 % (36.0-47.0); Hemoglobin 8.1 g/dL (12.0-16.0); Mean Corpuscular HGB CONC 32.1 g/dL (32.0-36.0); Mean Corpuscular Hemoglobin 33.2 pg (27.0-31.0); Mean Corpuscular Volume 103.3 fl (78.0-98.0); Mean Platelet Volume 9.7 fL (7.4-10.4); Platelet Count 324 10x3/uL (130-400); RBC Distribution Width 13.1 % (11.5-14.5); Red Blood Cell (RBC) Count 2.44 mill/uL (4.20-5.40); White Blood Cell (WBC) Count 6.9 10x3/uL (4.8-10.8)
[2023-02-07 06:25] LABS: ALT (SGPT) Less than 7 U/L (8-55); AST (SGOT) 23 U/L (5-34); Albumin 2.9 g/dL (3.4-4.8); Alkaline Phosphatase 84 U/L (40-110); Anion Gap 12 mmol/L (10-20); BUN (Urea Nitrogen) 35 mg/dL (9.8-20.1); Bilirubin, Total Less than 0.2 mg/dL (0.2-1.2); Calc. Creatinine Clearance 47 mL/min (70-130); Calcium 9.5 mg/dL (7.8-10.44); Carbon Dioxide 20 mmol/L (23-31); Chloride 108 mmol/L (98-107); Estimated GFR 81; Globulin 3.9 g/dL (2.4-3.5); Glucose 100 mg/dL (83-110); Magnesium 2.3 mg/dL (1.6-2.6); Potassium 4.1 mmol/L (3.5-5.1); Protein, Total 6.8 g/dL (5.8-8.1); Sodium 136 mmol/L (136-145)
[2023-02-07] MEDS: Senokot S 8.6-50 MG TAB PO SCH ×2 (08:20→20:44)
[2023-02-07] MEDS: Pregabalin 50 MG CAP PO SCH ×3 (08:20→20:45)
[2023-02-07] MEDS: levETIRAcetam 500 MG/5 ML VIAL SLOW IVP SCH ×2 (08:20→20:36)
[2023-02-07] MEDS: Carbidopa/Levodopa 25-100 mg Tablet PO SCH ×3 (08:21→20:45)
[2023-02-07] MEDS: valACYclovir 500 MG TAB PO SCH ×2 (08:21→20:44)
[2023-02-07] MEDS: Baclofen 10 MG TAB PO SCH ×3 (08:21→20:45)
[2023-02-07] MEDS: Megestrol Acetate 40 MG TAB PO SCH ×2 (08:21→20:44)
[2023-02-07] MEDS: ALPRAZolam 0.5 MG TAB PO SCH ×2 (08:22→20:44)
[2023-02-07] MEDS: Apixaban 5 MG TAB PO SCH ×2 (08:22→20:45)
[2023-02-07] MEDS: Nystatin 500,000 UNITS/5 ML UDCUP SSW SCH ×4 (08:22→20:45)
[2023-02-07] MEDS: Docusate Sodium 100 MG/10 ML UDCUP PO SCH ×2 (08:22→20:45)
[2023-02-07] MEDS: Topiramate 100 MG TAB PO SCH (08:22)
[2023-02-07] MEDS: Naloxegol 12.5 MG TAB PO SCH (08:22)
[2023-02-07] MEDS: Lisinopril 20 MG TAB PO SCH (08:22)
[2023-02-07] MEDS: Polyethylene Glycol 3350 17 GM Packet PO SCH (09:56)
[2023-02-07] MEDS: AA 4.25 %/CALCIUM/LYTES/D5W 2,000 ML IV SCH (12:59)
[2023-02-07] MEDS: Atorvastatin Calcium 20 MG TAB PO SCH (20:45)
[2023-02-08] MEDS: Oxacillin 2 GM in Sodium Chloride 0.9% 100 ML IVPB SCH ×6 (02:06→20:55)
[2023-02-08] MEDS: Acetaminophen 325 MG TAB PO SCH ×4 (06:29→22:08)
[2023-02-08] MEDS: Levothyroxine Sodium 50 MCG TAB PO SCH (06:30)
[2023-02-08] MEDS: fentaNYL 50 mcg/mL 1 mL Vial SLOW IVP PRN ×6 (06:36→22:07)
[2023-02-08 07:21] LABS: #Eosinphils 0.3 thou/uL (0.0-0.7); #Monocytes 0.4 thou/uL (0.11-0.59); #Neutrophils 3.1 thou/uL (1.40-6.50); %Basophils 0.7 % (0.0-1.0); %Lymphocytes 36.9 % (21.0-51.0); %Monocytes 6.6 % (0.0-10.0); %Neutrophils 50.3 % (42.0-75.0); Hemoglobin 7.9 g/dL (12.0-16.0); Mean Corpuscular HGB CONC 31.6 g/dL (32.0-36.0); Mean Corpuscular Hemoglobin 33.2 pg (27.0-31.0); Mean Platelet Volume 9.7 fL (7.4-10.4); Platelet Count 337 10x3/uL (130-400); RBC Distribution Width 13.2 % (11.5-14.5); Red Blood Cell (RBC) Count 2.38 mill/uL (4.20-5.40); White Blood Cell (WBC) Count 6.1 10x3/uL (4.8-10.8)
[2023-02-08] MEDS: Apixaban 5 MG TAB PO SCH ×2 (08:40→20:55)
[2023-02-08] MEDS: Topiramate 100 MG TAB PO SCH (08:40)
[2023-02-08] MEDS: Lisinopril 20 MG TAB PO SCH (08:40)
[2023-02-08] MEDS: Baclofen 10 MG TAB PO SCH ×3 (08:40→20:56)
[2023-02-08] MEDS: Pregabalin 50 MG CAP PO SCH ×3 (08:41→20:56)
[2023-02-08] MEDS: Senokot S 8.6-50 MG TAB PO SCH ×2 (08:41→20:56)
[2023-02-08] MEDS: valACYclovir 500 MG TAB PO SCH ×2 (08:41→20:56)
[2023-02-08] MEDS: Carbidopa/Levodopa 25-100 mg Tablet PO SCH ×3 (08:42→20:56)
[2023-02-08] MEDS: Nystatin 500,000 UNITS/5 ML UDCUP SSW SCH ×4 (08:42→20:57)
[2023-02-08] MEDS: levETIRAcetam 500 MG/5 ML VIAL SLOW IVP SCH ×2 (08:42→20:56)
[2023-02-08] MEDS: Docusate Sodium 100 MG/10 ML UDCUP PO SCH ×2 (08:42→20:57)
[2023-02-08] MEDS: Naloxegol 12.5 MG TAB PO SCH (08:42)
[2023-02-08] MEDS: Megestrol Acetate 40 MG TAB PO SCH ×2 (08:42→20:56)
[2023-02-08] MEDS: ALPRAZolam 0.5 MG TAB PO SCH ×2 (08:42→20:55)
[2023-02-08 09:48] LABS: Albumin 2.3 g/dL (3.4-4.8)
[2023-02-08 09:49] LABS: ALT (SGPT) Less than 7 U/L (8-55); AST (SGOT) 19 U/L (5-34); Alkaline Phosphatase 61 U/L (40-110); Calc. Creatinine Clearance 52 mL/min (70-130); Estimated GFR 89; Magnesium 2.4 mg/dL (1.6-2.6)
[2023-02-08] MEDS: Polyethylene Glycol 3350 17 GM Packet PO SCH (10:52)
[2023-02-08 11:05] LABS: Calcium 9.6 mg/dL (7.8-10.44); Potassium 4.2 mmol/L (3.5-5.1)
[2023-02-08] MEDS ORDERED: Iopamidol 370 76% 100 ML VIAL ONE (11:05)
[2023-02-08 11:06] LABS: Glucose 96 mg/dL (83-110)
[2023-02-08 11:08] LABS: Bilirubin, Total Less than 0.2 mg/dL (0.2-1.2)
[2023-02-08 11:20] LABS: Chloride 109 mmol/L (98-107); Sodium 136 mmol/L (136-145)
[2023-02-08 11:21] LABS: Anion Gap 11 mmol/L (10-20); BUN (Urea Nitrogen) 30 mg/dL (9.8-20.1); Carbon Dioxide 20 mmol/L (23-31); Globulin 5.3 g/dL (2.4-3.5); Protein, Total 7.6 g/dL (5.8-8.1)
[2023-02-08] MEDS: D5W-AA 4.25% with LYTES 1,000 ML IV SCH (14:48)
[2023-02-08] MEDS: fentaNYL 50 mcg/hour Patch TD SCH (17:39)
[2023-02-08] MEDS: AA 4.25 %/CALCIUM/LYTES/D5W 2,000 ML IV SCH (18:24)
[2023-02-08] MEDS: Atorvastatin Calcium 20 MG TAB PO SCH (20:56)
[2023-02-09] MEDS: D5W-AA 4.25% with LYTES 1,000 ML IV SCH ×3 (00:33→21:53)
[2023-02-09] MEDS: Oxacillin 2 GM in Sodium Chloride 0.9% 100 ML IVPB SCH ×6 (00:34→21:14)
[2023-02-09] MEDS: fentaNYL 50 mcg/mL 1 mL Vial SLOW IVP PRN ×6 (00:34→21:15)
[2023-02-09] MEDS: Levothyroxine Sodium 75 MCG TAB PO SCH (05:19)
[2023-02-09] MEDS: Acetaminophen 325 MG TAB PO SCH ×4 (05:27→22:49)
[2023-02-09 05:47] LABS: #Basophils 0.1 thou/uL (0.0-0.2); #Eosinphils 0.5 thou/uL (0.0-0.7); #Monocytes 0.6 thou/uL (0.11-0.59); #Neutrophils 4.5 thou/uL (1.40-6.50); %Basophils 0.7 % (0.0-1.0); %Eosinophils 5.1 % (0.0-10.0); %Monocytes 6.9 % (0.0-10.0); %Neutrophils 49.7 % (42.0-75.0); Hematocrit 30.9 % (36.0-47.0); Hemoglobin 9.6 g/dL (12.0-16.0); Mean Corpuscular HGB CONC 31.1 g/dL (32.0-36.0); Mean Corpuscular Hemoglobin 33.1 pg (27.0-31.0); Mean Corpuscular Volume 106.6 fl (78.0-98.0); Mean Platelet Volume 9.3 fL (7.4-10.4); Platelet Count 347 10x3/uL (130-400); RBC Distribution Width 13.4 % (11.5-14.5)
[2023-02-09 06:15] LABS: ALT (SGPT) Less than 7 U/L (8-55); AST (SGOT) 26 U/L (5-34); Albumin 3.5 g/dL (3.4-4.8); Alkaline Phosphatase 93 U/L (40-110); Anion Gap 14 mmol/L (10-20); BUN (Urea Nitrogen) 36 mg/dL (9.8-20.1); Bilirubin, Total 0.3 mg/dL (0.2-1.2); Calc. Creatinine Clearance 46 mL/min (70-130); Carbon Dioxide 18 mmol/L (23-31); Chloride 108 mmol/L (98-107); Estimated GFR 78; Globulin 4.3 g/dL (2.4-3.5); Glucose 93 mg/dL (83-110); Magnesium 2.5 mg/dL (1.6-2.6); Potassium 4.8 mmol/L (3.5-5.1); Protein, Total 7.8 g/dL (5.8-8.1); Sodium 135 mmol/L (136-145)
[2023-02-09] MEDS: Nystatin 500,000 UNITS/5 ML UDCUP SSW SCH ×4 (09:22→21:18)
[2023-02-09] MEDS: Senokot S 8.6-50 MG TAB PO SCH ×2 (09:22→21:19)
[2023-02-09] MEDS: Carbidopa/Levodopa 25-100 mg Tablet PO SCH ×3 (09:22→21:19)
[2023-02-09] MEDS: Lisinopril 20 MG TAB PO SCH (09:22)
[2023-02-09] MEDS: Pregabalin 50 MG CAP PO SCH ×2 (09:22→14:39)
[2023-02-09] MEDS: ALPRAZolam 0.5 MG TAB PO SCH ×2 (09:23→21:18)
[2023-02-09] MEDS: Naloxegol 12.5 MG TAB PO SCH (09:23)
[2023-02-09] MEDS: Baclofen 10 MG TAB PO SCH ×3 (09:23→21:19)
[2023-02-09] MEDS: Megestrol Acetate 40 MG TAB PO SCH ×2 (09:23→21:15)
[2023-02-09] MEDS: valACYclovir 500 MG TAB PO SCH ×2 (09:23→21:18)
[2023-02-09] MEDS: Topiramate 100 MG TAB PO SCH (09:23)
[2023-02-09] MEDS: Apixaban 5 MG TAB PO SCH ×2 (09:23→21:18)
[2023-02-09] MEDS: Docusate Sodium 100 MG/10 ML UDCUP PO SCH ×2 (09:24→21:19)
[2023-02-09] MEDS: levETIRAcetam 500 MG/5 ML VIAL SLOW IVP SCH ×2 (09:24→21:17)
[2023-02-09] MEDS: Polyethylene Glycol 3350 17 GM Packet PO SCH (09:26)
[2023-02-09] MEDS ORDERED: Promethazine HCl 12.5 MG in Sodium Chloride 0.9% 50 ML IVPB PRN (15:12)
[2023-02-09] MEDS ORDERED: Pregabalin 25 MG CAP PO SCH (15:30)
[2023-02-09] MEDS: traMADol HCl 50 MG TAB PO PRN (15:54)
[2023-02-09] MEDS: Atorvastatin Calcium 20 MG TAB PO SCH (21:17)
[2023-02-09] MEDS: Pregabalin 25 MG CAP PO SCH ×2 (22:49→23:44)
[2023-02-10] MEDS ORDERED: Ketorolac Tromethamine 30 MG/ML VIAL IVP SCH (00:15)
[2023-02-10] MEDS: Oxacillin 2 GM in Sodium Chloride 0.9% 100 ML IVPB SCH ×6 (01:02→21:31)
[2023-02-10] MEDS: Acetaminophen 325 MG TAB PO SCH ×3 (02:06→17:35)
[2023-02-10] MEDS: fentaNYL 50 mcg/mL 1 mL Vial SLOW IVP PRN ×2 (05:28→12:47)
[2023-02-10] MEDS: Levothyroxine Sodium 50 MCG TAB PO SCH (05:28)
[2023-02-10] MEDS: Naloxegol 12.5 MG TAB PO SCH (08:53)
[2023-02-10] MEDS: levETIRAcetam 500 MG/5 ML VIAL SLOW IVP SCH ×2 (08:53→21:38)
[2023-02-10] MEDS: Pregabalin 25 MG CAP PO SCH ×3 (08:54→21:38)
[2023-02-10] MEDS: Baclofen 10 MG TAB PO SCH ×3 (08:55→21:35)
[2023-02-10] MEDS: Megestrol Acetate 40 MG TAB PO SCH ×2 (08:55→21:37)
[2023-02-10] MEDS: valACYclovir 500 MG TAB PO SCH ×2 (08:55→21:37)
[2023-02-10] MEDS: Carbidopa/Levodopa 25-100 mg Tablet PO SCH ×3 (08:55→21:37)
[2023-02-10] MEDS: Apixaban 5 MG TAB PO SCH ×2 (08:55→21:35)
[2023-02-10] MEDS: Senokot S 8.6-50 MG TAB PO SCH ×2 (08:55→21:39)
[2023-02-10] MEDS: ALPRAZolam 0.5 MG TAB PO SCH ×2 (08:55→21:36)
[2023-02-10] MEDS: Nystatin 500,000 UNITS/5 ML UDCUP SSW SCH ×4 (08:56→21:37)
[2023-02-10] MEDS: Topiramate 100 MG TAB PO SCH (08:56)
[2023-02-10] MEDS: D5W-AA 4.25% with LYTES 1,000 ML IV SCH ×3 (08:56→21:21)
[2023-02-10] MEDS: Docusate Sodium 100 MG/10 ML UDCUP PO SCH ×2 (09:31→21:38)
[2023-02-10 11:11] LABS: #Eosinphils 0.4 thou/uL (0.0-0.7); #Monocytes 0.6 thou/uL (0.11-0.59); #Neutrophils 5.5 thou/uL (1.40-6.50); %Basophils 0.4 % (0.0-1.0); %Eosinophils 4.5 % (0.0-10.0); %Lymphocytes 28.9 % (21.0-51.0); %Monocytes 6.2 % (0.0-10.0); %Neutrophils 59.5 % (42.0-75.0); Hematocrit 27.5 % (36.0-47.0); Hemoglobin 8.8 g/dL (12.0-16.0); Mean Corpuscular Hemoglobin 33.3 pg (27.0-31.0); Mean Corpuscular Volume 104.2 fl (78.0-98.0); Mean Platelet Volume 9.9 fL (7.4-10.4); Platelet Count 362 10x3/uL (130-400); RBC Distribution Width 13.5 % (11.5-14.5); Red Blood Cell (RBC) Count 2.64 mill/uL (4.20-5.40); White Blood Cell (WBC) Count 9.3 10x3/uL (4.8-10.8)
[2023-02-10] MEDS: Lisinopril 20 MG TAB PO SCH (11:32)
[2023-02-10] MEDS: traMADol HCl 50 MG TAB PO PRN ×2 (11:33→17:35)
[2023-02-10 11:43] LABS: ALT (SGPT) Less than 7 U/L (8-55); AST (SGOT) 23 U/L (5-34); Albumin 3.2 g/dL (3.4-4.8); Alkaline Phosphatase 87 U/L (40-110); Anion Gap 13 mmol/L (10-20); BUN (Urea Nitrogen) 43 mg/dL (9.8-20.1); Bilirubin, Total 0.2 mg/dL (0.2-1.2); Calc. Creatinine Clearance 42 mL/min (70-130); Calcium 9.8 mg/dL (7.8-10.44); Carbon Dioxide 17 mmol/L (23-31); Estimated GFR 70; Glucose 100 mg/dL (83-110); Magnesium 2.4 mg/dL (1.6-2.6); Protein, Total 7.2 g/dL (5.8-8.1)
[2023-02-10 12:41] LABS: Chloride 107 mmol/L (98-107); Potassium 4.4 mmol/L (3.5-5.1); Sodium 133 mmol/L (136-145)
[2023-02-10] MEDS: Ondansetron PF 4 MG/2 ML Vial IVP PRN (14:08)
[2023-02-10] MEDS ORDERED: Mineral Oil ENEMA PR SCH (17:30)
[2023-02-10] MEDS: Sodium Bicarbonate Tab 325 MG TAB PO SCH (21:35)
[2023-02-10] MEDS: Atorvastatin Calcium 20 MG TAB PO SCH (21:36)
[2023-02-10] MEDS: Famotidine 20 MG TAB PO SCH (21:36)
[2023-02-11] MEDS: Oxacillin 2 GM in Sodium Chloride 0.9% 100 ML IVPB SCH ×6 (01:42→20:25)
[2023-02-11] MEDS: Acetaminophen 325 MG TAB PO SCH ×5 (01:42→17:21)
[2023-02-11 06:10] LABS: #Basophils 0.1 thou/uL (0.0-0.2); #Eosinphils 0.4 thou/uL (0.0-0.7); #Monocytes 0.4 thou/uL (0.11-0.59); #Neutrophils 2.9 thou/uL (1.40-6.50); %Basophils 0.8 % (0.0-1.0); %Eosinophils 6.4 % (0.0-10.0); %Monocytes 6.9 % (0.0-10.0); %Neutrophils 46.4 % (42.0-75.0); Hematocrit 24.7 % (36.0-47.0); Hemoglobin 7.8 g/dL (12.0-16.0); Mean Corpuscular HGB CONC 31.6 g/dL (32.0-36.0); Mean Corpuscular Hemoglobin 33.1 pg (27.0-31.0); Mean Corpuscular Volume 104.7 fl (78.0-98.0); Mean Platelet Volume 9.8 fL (7.4-10.4); Platelet Count 339 10x3/uL (130-400); RBC Distribution Width 13.8 % (11.5-14.5); Red Blood Cell (RBC) Count 2.36 mill/uL (4.20-5.40); White Blood Cell (WBC) Count 6.2 10x3/uL (4.8-10.8)
[2023-02-11 06:37] LABS: ALT (SGPT) Less than 7 U/L (8-55); AST (SGOT) 21 U/L (5-34); Alkaline Phosphatase 80 U/L (40-110); Anion Gap 10 mmol/L (10-20); BUN (Urea Nitrogen) 48 mg/dL (9.8-20.1); Bilirubin, Total Less than 0.2 mg/dL (0.2-1.2); Calc. Creatinine Clearance 44 mL/min (70-130); Calcium 9.4 mg/dL (7.8-10.44); Carbon Dioxide 19 mmol/L (23-31); Chloride 109 mmol/L (98-107); Estimated GFR 74; Globulin 3.7 g/dL (2.4-3.5); Glucose 96 mg/dL (83-110); Magnesium 2.5 mg/dL (1.6-2.6); Potassium 5.2 mmol/L (3.5-5.1); Protein, Total 6.7 g/dL (5.8-8.1); Sodium 133 mmol/L (136-145)
[2023-02-11] MEDS: Senokot S 8.6-50 MG TAB PO SCH ×2 (08:47→20:24)
[2023-02-11] MEDS: Megestrol Acetate 40 MG TAB PO SCH ×2 (08:47→20:24)
[2023-02-11] MEDS: Sodium Bicarbonate Tab 325 MG TAB PO SCH ×2 (08:47→20:24)
[2023-02-11] MEDS: Naloxegol 12.5 MG TAB PO SCH (08:47)
[2023-02-11] MEDS: Baclofen 10 MG TAB PO SCH ×3 (08:47→20:24)
[2023-02-11] MEDS: Pregabalin 25 MG CAP PO SCH ×3 (08:48→20:23)
[2023-02-11] MEDS: ALPRAZolam 0.5 MG TAB PO SCH ×2 (08:48→20:24)
[2023-02-11] MEDS: Multivit, Therapeutic 1 TAB PO SCH (08:48)
[2023-02-11] MEDS: Apixaban 5 MG TAB PO SCH ×2 (08:48→20:24)
[2023-02-11] MEDS: Carbidopa/Levodopa 25-100 mg Tablet PO SCH ×3 (08:48→20:24)
[2023-02-11] MEDS: Topiramate 100 MG TAB PO SCH (08:48)
[2023-02-11] MEDS: Lisinopril 20 MG TAB PO SCH (08:48)
[2023-02-11] MEDS: levETIRAcetam 500 MG/5 ML VIAL SLOW IVP SCH ×2 (08:48→20:23)
[2023-02-11] MEDS: Nystatin 500,000 UNITS/5 ML UDCUP SSW SCH ×4 (08:49→20:25)
[2023-02-11] MEDS: Docusate Sodium 100 MG/10 ML UDCUP PO SCH ×2 (08:50→20:25)
[2023-02-11] MEDS: valACYclovir 500 MG TAB PO SCH ×2 (08:51→20:24)
[2023-02-11] MEDS: traMADol HCl 50 MG TAB PO PRN ×2 (11:43→17:17)
[2023-02-11] MEDS: Levothyroxine Sodium 75 MCG TAB PO SCH (11:45)
[2023-02-11] MEDS: D5W-AA 4.25% with LYTES 1,000 ML IV SCH (11:52)
[2023-02-11] MEDS ORDERED: D5W-AA 4.25% with LYTES 1,000 ML IV SCH (12:00)
[2023-02-11] MEDS: fentaNYL 50 mcg/hour Patch TD SCH (14:24)
[2023-02-11] MEDS: Famotidine 20 MG TAB PO SCH (20:24)
[2023-02-11] MEDS: Atorvastatin Calcium 20 MG TAB PO SCH (20:24)
[2023-02-12] MEDS: Oxacillin 2 GM in Sodium Chloride 0.9% 100 ML IVPB SCH ×6 (00:15→20:41)
[2023-02-12] MEDS: Acetaminophen 325 MG TAB PO SCH ×5 (01:34→23:46)
[2023-02-12 05:53] LABS: ALT (SGPT) Less than 7 U/L (8-55); AST (SGOT) 18 U/L (5-34); Albumin 2.6 g/dL (3.4-4.8); Alkaline Phosphatase 73 U/L (40-110); Anion Gap 11 mmol/L (10-20); BUN (Urea Nitrogen) 30 mg/dL (9.8-20.1); Bilirubin, Total Less than 0.2 mg/dL (0.2-1.2); Calc. Creatinine Clearance 53 mL/min (70-130); Calcium 8.1 mg/dL (7.8-10.44); Carbon Dioxide 17 mmol/L (23-31); Chloride 110 mmol/L (98-107); Estimated GFR 89; Globulin 3.1 g/dL (2.4-3.5); Glucose 231 mg/dL (83-110); Magnesium 2.2 mg/dL (1.6-2.6); Potassium 4.9 mmol/L (3.5-5.1); Protein, Total 5.7 g/dL (5.8-8.1); Sodium 133 mmol/L (136-145)
[2023-02-12] MEDS: Levothyroxine Sodium 50 MCG TAB PO SCH (06:30)
[2023-02-12 08:20] LABS: #Basophils 0.1 thou/uL (0.0-0.2); #Eosinphils 0.5 thou/uL (0.0-0.7); #Monocytes 0.5 thou/uL (0.11-0.59); #Neutrophils 2.9 thou/uL (1.40-6.50); %Basophils 0.7 % (0.0-1.0); %Eosinophils 7.1 % (0.0-10.0); %Lymphocytes 42.6 % (21.0-51.0); %Monocytes 6.5 % (0.0-10.0); %Neutrophils 42.4 % (42.0-75.0); Hematocrit 25.8 % (36.0-47.0); Hemoglobin 8.3 g/dL (12.0-16.0); Mean Corpuscular HGB CONC 32.2 g/dL (32.0-36.0); Mean Corpuscular Hemoglobin 33.1 pg (27.0-31.0); Mean Corpuscular Volume 102.8 fl (78.0-98.0); Mean Platelet Volume 9.4 fL (7.4-10.4); Platelet Count 346 10x3/uL (130-400); RBC Distribution Width 13.8 % (11.5-14.5); Red Blood Cell (RBC) Count 2.51 mill/uL (4.20-5.40); White Blood Cell (WBC) Count 6.9 10x3/uL (4.8-10.8)
[2023-02-12] MEDS: levETIRAcetam 500 MG/5 ML VIAL SLOW IVP SCH ×2 (08:35→20:47)
[2023-02-12] MEDS: Apixaban 5 MG TAB PO SCH ×2 (08:35→20:46)
[2023-02-12] MEDS: Pregabalin 25 MG CAP PO SCH ×3 (08:36→20:46)
[2023-02-12] MEDS: ALPRAZolam 0.5 MG TAB PO SCH ×2 (08:36→20:44)
[2023-02-12] MEDS: Naloxegol 12.5 MG TAB PO SCH (08:36)
[2023-02-12] MEDS: valACYclovir 500 MG TAB PO SCH ×2 (08:36→20:42)
[2023-02-12] MEDS: Sodium Bicarbonate Tab 325 MG TAB PO SCH ×2 (08:36→20:41)
[2023-02-12] MEDS: Megestrol Acetate 40 MG TAB PO SCH ×2 (08:36→20:43)
[2023-02-12] MEDS: Senokot S 8.6-50 MG TAB PO SCH ×2 (08:37→20:42)
[2023-02-12] MEDS: Lisinopril 20 MG TAB PO SCH (08:37)
[2023-02-12] MEDS: Topiramate 100 MG TAB PO SCH (08:37)
[2023-02-12] MEDS: Multivit, Therapeutic 1 TAB PO SCH (08:37)
[2023-02-12] MEDS: Docusate Sodium 100 MG/10 ML UDCUP PO SCH ×2 (08:37→20:47)
[2023-02-12] MEDS: Carbidopa/Levodopa 25-100 mg Tablet PO SCH ×3 (08:37→20:42)
[2023-02-12] MEDS: Nystatin 500,000 UNITS/5 ML UDCUP SSW SCH ×4 (08:37→20:47)
[2023-02-12] MEDS: Baclofen 10 MG TAB PO SCH ×3 (08:37→20:43)
[2023-02-12] MEDS: traMADol HCl 50 MG TAB PO PRN ×2 (11:44→17:23)
[2023-02-12] MEDS: Atorvastatin Calcium 20 MG TAB PO SCH (20:44)
[2023-02-12] MEDS: Famotidine 20 MG TAB PO SCH (20:45)
[2023-02-13] MEDS: Oxacillin 2 GM in Sodium Chloride 0.9% 100 ML IVPB SCH ×6 (00:17→20:59)
[2023-02-13] MEDS: Fentanyl 100 MCG/2 ML VIAL SLOW IVP PRN ×2 (03:52→14:37)
[2023-02-13] MEDS: Acetaminophen 325 MG TAB PO SCH ×4 (04:01→22:57)
[2023-02-13] MEDS: Levothyroxine Sodium 75 MCG TAB PO SCH (04:01)
[2023-02-13 04:18] LABS: #Eosinphils 0.3 thou/uL (0.0-0.7); #Monocytes 0.5 thou/uL (0.11-0.59); #Neutrophils 3.3 thou/uL (1.40-6.50); %Basophils 0.6 % (0.0-1.0); %Eosinophils 4.6 % (0.0-10.0); %Lymphocytes 38.4 % (21.0-51.0); %Neutrophils 48.8 % (42.0-75.0); Hematocrit 25.8 % (36.0-47.0); Hemoglobin 8.2 g/dL (12.0-16.0); Mean Corpuscular HGB CONC 31.8 g/dL (32.0-36.0); Mean Corpuscular Hemoglobin 33.2 pg (27.0-31.0); Mean Corpuscular Volume 104.5 fl (78.0-98.0); Mean Platelet Volume 9.3 fL (7.4-10.4); Platelet Count 333 10x3/uL (130-400); RBC Distribution Width 14.2 % (11.5-14.5); Red Blood Cell (RBC) Count 2.47 mill/uL (4.20-5.40); White Blood Cell (WBC) Count 6.8 10x3/uL (4.8-10.8)
[2023-02-13 04:42] LABS: ALT (SGPT) Less than 7 U/L (8-55); AST (SGOT) 22 U/L (5-34); Albumin 3.1 g/dL (3.4-4.8); Alkaline Phosphatase 87 U/L (40-110); Anion Gap 10 mmol/L (10-20); BUN (Urea Nitrogen) 22 mg/dL (9.8-20.1); Bilirubin, Total Less than 0.2 mg/dL (0.2-1.2); Calc. Creatinine Clearance 45 mL/min (70-130); Carbon Dioxide 20 mmol/L (23-31); Chloride 111 mmol/L (98-107); Estimated GFR 76; Globulin 3.7 g/dL (2.4-3.5); Glucose 92 mg/dL (83-110); Magnesium 2.2 mg/dL (1.6-2.6); Potassium 4.5 mmol/L (3.5-5.1); Protein, Total 6.8 g/dL (5.8-8.1); Sodium 136 mmol/L (136-145)
[2023-02-13] MEDS: Nystatin 500,000 UNITS/5 ML UDCUP SSW SCH ×4 (08:37→20:59)
[2023-02-13] MEDS: Baclofen 10 MG TAB PO SCH ×3 (08:37→20:58)
[2023-02-13] MEDS: Sodium Bicarbonate Tab 325 MG TAB PO SCH ×3 (08:37→20:57)
[2023-02-13] MEDS: Lisinopril 20 MG TAB PO SCH (08:38)
[2023-02-13] MEDS: ALPRAZolam 0.5 MG TAB PO SCH ×2 (08:38→20:58)
[2023-02-13] MEDS: Senokot S 8.6-50 MG TAB PO SCH ×2 (08:38→20:58)
[2023-02-13] MEDS: Multivit, Therapeutic 1 TAB PO SCH (08:38)
[2023-02-13] MEDS: Megestrol Acetate 40 MG TAB PO SCH ×2 (08:38→20:58)
[2023-02-13] MEDS: Apixaban 5 MG TAB PO SCH ×2 (08:38→20:58)
[2023-02-13] MEDS: Carbidopa/Levodopa 25-100 mg Tablet PO SCH ×3 (08:38→20:57)
[2023-02-13] MEDS: valACYclovir 500 MG TAB PO SCH ×2 (08:38→20:58)
[2023-02-13] MEDS: Naloxegol 12.5 MG TAB PO SCH (08:38)
[2023-02-13] MEDS: Topiramate 100 MG TAB PO SCH (08:39)
[2023-02-13] MEDS: Docusate Sodium 100 MG/10 ML UDCUP PO SCH ×2 (08:39→20:59)
[2023-02-13] MEDS: Pregabalin 25 MG CAP PO SCH ×3 (08:39→20:58)
[2023-02-13] MEDS: levETIRAcetam 500 MG/5 ML VIAL SLOW IVP SCH ×2 (08:39→20:57)
[2023-02-13] MEDS: traMADol HCl 50 MG TAB PO PRN ×2 (10:40→17:58)
[2023-02-13] MEDS: Famotidine 20 MG TAB PO SCH (20:58)
[2023-02-13] MEDS: Atorvastatin Calcium 20 MG TAB PO SCH (20:58)
[2023-02-14] MEDS: Oxacillin 2 GM in Sodium Chloride 0.9% 100 ML IVPB SCH ×6 (00:58→21:07)
[2023-02-14] MEDS: Levothyroxine Sodium 50 MCG TAB PO SCH (05:25)
[2023-02-14] MEDS: Acetaminophen 325 MG TAB PO SCH ×4 (05:25→23:59)
[2023-02-14] MEDS: Fentanyl 100 MCG/2 ML VIAL SLOW IVP PRN ×3 (05:41→21:48)
[2023-02-14] MEDS: Nystatin 500,000 UNITS/5 ML UDCUP SSW SCH ×4 (09:34→21:06)
[2023-02-14] MEDS: Megestrol Acetate 40 MG TAB PO SCH ×2 (09:35→21:06)
[2023-02-14] MEDS: Pregabalin 25 MG CAP PO SCH (09:35)
[2023-02-14] MEDS: Docusate Sodium 100 MG/10 ML UDCUP PO SCH (09:35)
[2023-02-14] MEDS: valACYclovir 500 MG TAB PO SCH ×2 (09:35→21:05)
[2023-02-14] MEDS: Carbidopa/Levodopa 25-100 mg Tablet PO SCH ×3 (09:35→21:05)
[2023-02-14] MEDS: Sodium Bicarbonate Tab 325 MG TAB PO SCH ×3 (09:35→21:04)
[2023-02-14] MEDS: ALPRAZolam 0.5 MG TAB PO SCH ×2 (09:35→21:05)
[2023-02-14] MEDS: Baclofen 10 MG TAB PO SCH ×3 (09:35→21:05)
[2023-02-14] MEDS: Naloxegol 12.5 MG TAB PO SCH (09:35)
[2023-02-14] MEDS: Lisinopril 20 MG TAB PO SCH (09:36)
[2023-02-14] MEDS: Topiramate 100 MG TAB PO SCH (09:36)
[2023-02-14] MEDS: Apixaban 5 MG TAB PO SCH ×2 (09:36→21:05)
[2023-02-14] MEDS: Multivit, Therapeutic 1 TAB PO SCH (09:36)
[2023-02-14] MEDS: levETIRAcetam 500 MG/5 ML VIAL SLOW IVP SCH ×2 (09:36→21:05)
[2023-02-14] MEDS: Senokot S 8.6-50 MG TAB PO SCH ×2 (09:36→21:07)
[2023-02-14] MEDS ORDERED: Mineral Oil ENEMA PR PRN (09:40)
[2023-02-14] MEDS: Pregabalin 50 MG CAP PO SCH ×2 (16:31→21:06)
[2023-02-14] MEDS: Atorvastatin Calcium 20 MG TAB PO SCH (21:05)
[2023-02-14] MEDS: Famotidine 20 MG TAB PO SCH (21:05)
[2023-02-15] MEDS: Oxacillin 2 GM in Sodium Chloride 0.9% 100 ML IVPB SCH ×6 (01:01→20:27)
[2023-02-15] MEDS: traMADol HCl 50 MG TAB PO PRN ×2 (02:22→20:58)
[2023-02-15] MEDS: Fentanyl 100 MCG/2 ML VIAL SLOW IVP PRN ×2 (05:45→16:51)
[2023-02-15] MEDS: Levothyroxine Sodium 75 MCG TAB PO SCH (05:46)
[2023-02-15] MEDS: Acetaminophen 325 MG TAB PO SCH ×4 (05:46→23:01)
[2023-02-15 05:48] LABS: Anion Gap 14 mmol/L (10-20); BUN (Urea Nitrogen) 16 mg/dL (9.8-20.1); Calc. Creatinine Clearance 48 mL/min (70-130); Calcium 8.6 mg/dL (7.8-10.44); Carbon Dioxide 18 mmol/L (23-31); Chloride 113 mmol/L (98-107); Estimated GFR 84; Glucose 99 mg/dL (83-110); Potassium 3.8 mmol/L (3.5-5.1); Sodium 141 mmol/L (136-145)
[2023-02-15] MEDS: Naloxegol 12.5 MG TAB PO SCH (08:36)
[2023-02-15] MEDS: Nystatin 500,000 UNITS/5 ML UDCUP SSW SCH ×4 (08:36→20:35)
[2023-02-15] MEDS: levETIRAcetam 500 MG/5 ML VIAL SLOW IVP SCH ×2 (08:36→20:33)
[2023-02-15] MEDS: Sodium Bicarbonate Tab 325 MG TAB PO SCH ×3 (08:36→20:33)
[2023-02-15] MEDS: Baclofen 10 MG TAB PO SCH ×3 (08:37→20:34)
[2023-02-15] MEDS: Pregabalin 50 MG CAP PO SCH ×3 (08:37→20:33)
[2023-02-15] MEDS: ALPRAZolam 0.5 MG TAB PO SCH ×2 (08:37→20:34)
[2023-02-15] MEDS: Topiramate 100 MG TAB PO SCH (08:37)
[2023-02-15] MEDS: Multivit, Therapeutic 1 TAB PO SCH (08:37)
[2023-02-15] MEDS: Lisinopril 20 MG TAB PO SCH (08:37)
[2023-02-15] MEDS: valACYclovir 500 MG TAB PO SCH (08:37)
[2023-02-15] MEDS: Megestrol Acetate 40 MG TAB PO SCH ×2 (08:37→20:34)
[2023-02-15] MEDS: Senokot S 8.6-50 MG TAB PO SCH ×2 (08:38→20:34)
[2023-02-15] MEDS: Carbidopa/Levodopa 25-100 mg Tablet PO SCH ×3 (08:38→20:34)
[2023-02-15] MEDS: Apixaban 5 MG TAB PO SCH ×2 (08:38→20:35)
[2023-02-15] MEDS: Atorvastatin Calcium 20 MG TAB PO SCH (20:34)
[2023-02-15] MEDS: Famotidine 20 MG TAB PO SCH (20:34)
[2023-02-16] MEDS: Oxacillin 2 GM in Sodium Chloride 0.9% 100 ML IVPB SCH ×4 (00:20→12:23)
[2023-02-16] MEDS: Fentanyl 100 MCG/2 ML VIAL SLOW IVP PRN ×2 (00:30→14:59)
[2023-02-16] MEDS: Acetaminophen 325 MG TAB PO SCH ×2 (04:02→12:03)
[2023-02-16] MEDS: traMADol HCl 50 MG TAB PO PRN ×2 (04:47→12:24)
[2023-02-16] MEDS: Levothyroxine Sodium 50 MCG TAB PO SCH (05:19)
[2023-02-16 08:18] VITALS: BP 136/70; TEMP 98.3
[2023-02-16] MEDS: Megestrol Acetate 40 MG TAB PO SCH (09:40)
[2023-02-16] MEDS: Naloxegol 12.5 MG TAB PO SCH (09:40)
[2023-02-16] MEDS: Pregabalin 50 MG CAP PO SCH ×2 (09:41→14:07)
[2023-02-16] MEDS: Sodium Bicarbonate Tab 325 MG TAB PO SCH ×2 (09:41→14:07)
[2023-02-16] MEDS: Baclofen 10 MG TAB PO SCH ×2 (09:41→14:07)
[2023-02-16] MEDS: Carbidopa/Levodopa 25-100 mg Tablet PO SCH ×2 (09:42→14:07)
[2023-02-16] MEDS: Lisinopril 20 MG TAB PO SCH (09:42)
[2023-02-16] MEDS: Topiramate 100 MG TAB PO SCH (09:42)
[2023-02-16] MEDS: Senokot S 8.6-50 MG TAB PO SCH (09:42)
[2023-02-16] MEDS: Apixaban 5 MG TAB PO SCH (09:42)
[2023-02-16] MEDS: Multivit, Therapeutic 1 TAB PO SCH (09:42)
[2023-02-16] MEDS: Nystatin 500,000 UNITS/5 ML UDCUP SSW SCH (09:43)
[2023-02-16] MEDS: ALPRAZolam 0.5 MG TAB PO SCH (09:43)
[2023-02-16] MEDS: levETIRAcetam 500 MG/5 ML VIAL SLOW IVP SCH (09:44)
== END 2023-02-16 15:19 | DRG 95 ==
LOC: ERS 12:29 → 2NO 18:47 → T4-B 01-28 22:06
PROVIDERS: ADMIT Internal Medicine; ATTEND Family Medicine
PROC: 4A10X4Z Monitoring of Central Nervous Electrical Activity, External Approach (ICD-10-PCS; principal; 2023-01-23)
PROC: 02HV33Z Insertion of Infusion Device into Superior Vena Cava, Percutaneous Approach (ICD-10-PCS; 2023-02-03)
PROC: B5181ZA Fluoroscopy of Superior Vena Cava using Low Osmolar Contrast, Guidance (ICD-10-PCS; 2023-02-03)
PROC: B548ZZA Ultrasonography of Superior Vena Cava, Guidance (ICD-10-PCS; 2023-02-03)
DX: G06.1 Intraspinal abscess and granuloma (principal); B37.0 Candidal stomatitis; I82.C13 Acute embolism and thrombosis of internal jugular vein, bilateral; I50.32 Chronic diastolic (congestive) heart failure; Z68.1 Body mass index [BMI] 19.9 or less, adult; R78.81 Bacteremia; I38 Endocarditis, valve unspecified; E87.20 Acidosis, unspecified; E46 Unspecified protein-calorie malnutrition; G93.40 Encephalopathy, unspecified; I80.8 Phlebitis and thrombophlebitis of other sites; G20.A1 Parkinson's disease without dyskinesia, without mention of fluctuations; E03.9 Hypothyroidism, unspecified; R13.10 Dysphagia, unspecified; I11.0 Hypertensive heart disease with heart failure; G25.81 Restless legs syndrome; F41.9 Anxiety disorder, unspecified; I80.9 Phlebitis and thrombophlebitis of unspecified site; M48.02 Spinal stenosis, cervical region; M48.061 Spinal stenosis, lumbar region without neurogenic claudication; K59.00 Constipation, unspecified; G43.909 Migraine, unspecified, not intractable, without status migrainosus; D64.9 Anemia, unspecified; M60.9 Myositis, unspecified; B95.61 Methicillin susceptible Staphylococcus aureus infection as the cause of diseases classified elsewhere; R63.0 Anorexia; M60.88 Other myositis, other site; K05.10 Chronic gingivitis, plaque induced; R41.0 Disorientation, unspecified; E78.5 Hyperlipidemia, unspecified; G89.29 Other chronic pain; Z66 Do not resuscitate; R53.1 Weakness; R53.81 Other malaise; R77.8 Other specified abnormalities of plasma proteins; D72.829 Elevated white blood cell count, unspecified; R47.81 Slurred speech; Z79.899 Other long term (current) drug therapy; Z88.0 Allergy status to penicillin; Z86.73 Personal history of transient ischemic attack (TIA), and cerebral infarction without residual deficits; Z88.8 Allergy status to other drugs, medicaments and biological substances; Z79.82 Long term (current) use of aspirin; Z79.890 Hormone replacement therapy; Z90.710 Acquired absence of both cervix and uterus; Z98.890 Other specified postprocedural states; Z82.49 Family history of ischemic heart disease and other diseases of the circulatory system; Z11.52 Encounter for screening for COVID-19; M50.90 Cervical disc disorder, unspecified, unspecified cervical region
CPT/HCPCS: 36415; 36416; 36569; 70450; 70496; 70498; 70553; 71045; 72125; 72129; 72156; 80048; 80053; 83690; 83735; 84100; 84484; 85025; 85610; 85730; 86140; 87040; 87077; 87149; 87186; 93005; 93306; 95711; 95819; 95957; 96365; 96366; 96367; 96368; 96374; 96375; 96376; A9579; J0692; J1100; J1170; J1644; J1650; J1885; J1953; J2060; J2270; J2272; J2405; J2700; J3010; J3370; J3370-JW; J3475; J3480; J3490; J7042; J7050; L0174; Q9967; S0179

== ENCOUNTER 2023-03-06 11:14 | Inpatient (IN) | payer OTHER ==
[~2023-03-06 11:14] MED LIST: Magnevist 469MG/ML 20 ML VIAL ONE
[2023-03-06 11:54] LABS: #Eosinphils 0.3 thou/uL (0.0-0.7); #Monocytes 0.7 thou/uL (0.11-0.59); #Neutrophils 5.5 thou/uL (1.40-6.50); %Basophils 0.4 % (0.0-1.0); %Eosinophils 3.1 % (0.0-10.0); %Lymphocytes 20.4 % (21.0-51.0); %Monocytes 8.3 % (0.0-10.0); %Neutrophils 67.4 % (42.0-75.0); Hematocrit 28.6 % (36.0-47.0); Hemoglobin 8.7 g/dL (12.0-16.0); Mean Corpuscular HGB CONC 30.4 g/dL (32.0-36.0); Mean Corpuscular Hemoglobin 32.2 pg (27.0-31.0); Mean Corpuscular Volume 105.9 fl (78.0-98.0); Mean Platelet Volume 10.3 fL (7.4-10.4); Platelet Count 232 10x3/uL (130-400); RBC Distribution Width 15.2 % (11.5-14.5); White Blood Cell (WBC) Count 8.1 10x3/uL (4.8-10.8)
[2023-03-06 12:05] LABS: INR-International Normal Ratio 1.7; Prothrombin Time 20.7 sec (12.0-14.7)
[2023-03-06 12:06] LABS: PTT 63.4 sec (22.9-36.1)
[2023-03-06 12:20] LABS: ALT (SGPT) Less than 7 U/L (8-55); AST (SGOT) 14 U/L (5-34); Albumin 2.7 g/dL (3.4-4.8); Alkaline Phosphatase 70 U/L (40-110); Anion Gap 15 mmol/L (10-20); BUN (Urea Nitrogen) 14 mg/dL (9.8-20.1); Bilirubin, Total 0.2 mg/dL (0.2-1.2); Calc. Creatinine Clearance 0 mL/min (70-130); Calcium 8.8 mg/dL (7.8-10.44); Carbon Dioxide 17 mmol/L (23-31); Chloride 114 mmol/L (98-107); Estimated GFR 84; Globulin 4.1 g/dL (2.4-3.5); Glucose 85 mg/dL (83-110); Lipase 44 U/L (8-78); Potassium 3.7 mmol/L (3.5-5.1); Protein, Total 6.8 g/dL (5.8-8.1); Sodium 142 mmol/L (136-145)
[2023-03-06 12:21] LABS: Troponin I Less than 0.010 ng/mL (< 0.028)
[2023-03-06 13:51] LABS: Bacteria/HPF None Seen HPF (None Seen); Bilirubin Negative (Negative); Blood, Urine Negative (Negative); CAUTI Indications for Culture Alt mental st,lethar; Clarity Clear (Clear); Glucose, Urine (Dipstick) Normal (Negative); Ketone, Urine Negative (Negative); Leukocyte 25 Leu/uL (Negative); Nitrite Negative (Negative); Protein, Urine (Dipstick) Negative (Neg-Trace); RBC/HPF 0-3 HPF (0-3); Specific Gravity, Urine 1.013 (1.002-1.036); Squamous Epithelial None Seen HPF (0-3); Urobilinogen Normal mg/dL (Less than 2); WBC/HPF 0-3 HPF (0-3)
[2023-03-06 13:53] LABS: Urine Culture Reflex No No
[2023-03-06] MEDS ORDERED: Vancomycin 1 GM/200 ML (FROZEN) BAG ONE (16:05)
[2023-03-06] MEDS ORDERED: Senokot S 8.6-50 MG TAB PO PRN (17:34)
[2023-03-06] MEDS ORDERED: Acetaminophen 650 MG Suppository PR PRN (17:34)
[2023-03-06] MEDS ORDERED: Simethicone Chewable 80 MG TAB PO PRN (17:38)
[2023-03-06] MEDS ORDERED: OXACILLIN IV SCH (17:45)
[2023-03-06] MEDS ORDERED: traMADol HCl 50 MG TAB ONE (17:54)
[2023-03-06 18:34] LABS: Troponin I Less than 0.010 ng/mL (< 0.028)
[2023-03-06 19:53] VITALS: BMI 20.6
[2023-03-06] MEDS: Sodium Bicarbonate Tab 325 MG TAB PO SCH (20:26)
[2023-03-06] MEDS: Pregabalin 50 MG CAP PO SCH (20:27)
[2023-03-06] MEDS: Carbidopa/Levodopa 25-100 mg Tablet PO SCH (20:28)
[2023-03-06] MEDS: Apixaban 5 MG TAB PO SCH (20:28)
[2023-03-06] MEDS: Atorvastatin Calcium 20 MG TAB PO SCH (20:28)
[2023-03-06] MEDS: Megestrol Acetate 40 MG TAB PO SCH (20:28)
[2023-03-06] MEDS: levETIRAcetam 500 MG TAB PO SCH (20:28)
[2023-03-06] MEDS: Senokot S 8.6-50 MG TAB PO SCH (20:28)
[2023-03-06] MEDS: Baclofen 10 MG TAB PO SCH (20:29)
[2023-03-06] MEDS: Acetaminophen 325 MG TAB PO PRN (20:35)
[2023-03-06] MEDS ORDERED: Famotidine 20 MG TAB PO SCH (21:00)
[2023-03-06 21:06] LABS: Troponin I Less than 0.010 ng/mL (< 0.028)
[2023-03-06] MEDS: Oxacillin 2 GM in Sodium Chloride 0.9% 100 ML IVPB SCH (22:01)
[2023-03-07] MEDS: traMADol HCl 50 MG TAB PO PRN ×4 (00:01→22:57)
[2023-03-07] MEDS: Oxacillin 2 GM in Sodium Chloride 0.9% 100 ML IVPB SCH ×6 (00:01→20:29)
[2023-03-07] MEDS ORDERED: hydrOXYzine 25 MG TAB PO PRN (01:30)
[2023-03-07] MEDS ORDERED: ALPRAZolam 0.25 MG TAB PO SCH (01:30)
[2023-03-07] MEDS ORDERED: traZODone HCl 50 MG TAB PO SCH ×2 (01:30→21:00)
[2023-03-07] MEDS: Acetaminophen 325 MG TAB PO PRN (04:02)
[2023-03-07] MEDS ORDERED: Levothyroxine Sodium 75 MCG TAB PO SCH (06:00)
[2023-03-07 06:09] LABS: #Eosinphils 0.3 thou/uL (0.0-0.7); #Monocytes 0.5 thou/uL (0.11-0.59); #Neutrophils 4.5 thou/uL (1.40-6.50); %Basophils 0.4 % (0.0-1.0); %Eosinophils 4.2 % (0.0-10.0); %Lymphocytes 24.2 % (21.0-51.0); %Monocytes 6.9 % (0.0-10.0); %Neutrophils 63.9 % (42.0-75.0); Hematocrit 22.1 % (36.0-47.0); Hemoglobin 6.9 g/dL (12.0-16.0); Mean Corpuscular HGB CONC 31.2 g/dL (32.0-36.0); Mean Corpuscular Hemoglobin 32.7 pg (27.0-31.0); Mean Corpuscular Volume 104.7 fl (78.0-98.0); Mean Platelet Volume 9.8 fL (7.4-10.4); Platelet Count 219 10x3/uL (130-400); Red Blood Cell (RBC) Count 2.11 mill/uL (4.20-5.40); White Blood Cell (WBC) Count 7.1 10x3/uL (4.8-10.8)
[2023-03-07 07:04] LABS: ALT (SGPT) Less than 7 U/L (8-55); AST (SGOT) 15 U/L (5-34); Albumin 2.3 g/dL (3.4-4.8); Alkaline Phosphatase 64 U/L (40-110); Anion Gap 11 mmol/L (10-20); BUN (Urea Nitrogen) 11 mg/dL (9.8-20.1); Bilirubin, Total Less than 0.2 mg/dL (0.2-1.2); Calc. Creatinine Clearance 52 mL/min (70-130); Calcium 8.3 mg/dL (7.8-10.44); Carbon Dioxide 16 mmol/L (23-31); Chloride 114 mmol/L (98-107); Estimated GFR 88; Globulin 3.5 g/dL (2.4-3.5); Glucose 84 mg/dL (83-110); Potassium 3.3 mmol/L (3.5-5.1); Protein, Total 5.8 g/dL (5.8-8.1); Sodium 138 mmol/L (136-145)
[2023-03-07] MEDS ORDERED: Potassium Chloride 20 MEQ TAB PO SCH (08:00)
[2023-03-07] MEDS: Naloxegol 12.5 MG TAB PO SCH (08:24)
[2023-03-07] MEDS: Aspirin 81 mg Enteric Coated Tablet PO SCH (08:25)
[2023-03-07] MEDS: ALPRAZolam 0.25 MG TAB PO SCH ×3 (08:25→20:25)
[2023-03-07] MEDS: Megestrol Acetate 40 MG TAB PO SCH ×2 (08:25→20:27)
[2023-03-07] MEDS: Sodium Bicarbonate Tab 325 MG TAB PO SCH ×3 (08:25→20:28)
[2023-03-07] MEDS: Senokot S 8.6-50 MG TAB PO SCH ×2 (08:25→20:28)
[2023-03-07] MEDS: Apixaban 5 MG TAB PO SCH (08:25)
[2023-03-07] MEDS: Topiramate 100 MG TAB PO SCH (08:25)
[2023-03-07] MEDS: Carbidopa/Levodopa 25-100 mg Tablet PO SCH ×3 (08:26→20:27)
[2023-03-07] MEDS: levETIRAcetam 500 MG TAB PO SCH ×2 (08:26→20:27)
[2023-03-07] MEDS: Pregabalin 50 MG CAP PO SCH ×3 (08:26→20:29)
[2023-03-07] MEDS: Multivit, Therapeutic 1 TAB PO SCH (08:26)
[2023-03-07] MEDS: Baclofen 10 MG TAB PO SCH ×2 (08:26→20:26)
[2023-03-07] MEDS: Fluticasone Propionate Nasal Spray 16 gm Bottle NASAL SCH (08:42)
[2023-03-07] MEDS: Lisinopril 20 MG TAB PO SCH (08:42)
[2023-03-07] MEDS: Nystatin 500,000 UNITS/5 ML UDCUP SSW SCH ×3 (13:36→20:28)
[2023-03-07] MEDS: Atorvastatin Calcium 20 MG TAB PO SCH (20:26)
[2023-03-07 21:02] LABS: Hematocrit 29.4 % (36.0-47.0); Hemoglobin 9.5 g/dL (12.0-16.0); Platelet Count 255 10x3/uL (130-400)
[2023-03-08] MEDS: Oxacillin 2 GM in Sodium Chloride 0.9% 100 ML IVPB SCH ×5 (00:12→16:53)
[2023-03-08] MEDS ORDERED: Levothyroxine Sodium 50 MCG TAB PO SCH (06:00)
[2023-03-08 07:04] LABS: #Eosinphils 0.3 thou/uL (0.0-0.7); #Monocytes 0.4 thou/uL (0.11-0.59); #Neutrophils 3.6 thou/uL (1.40-6.50); %Basophils 0.3 % (0.0-1.0); %Eosinophils 4.2 % (0.0-10.0); %Lymphocytes 29.6 % (21.0-51.0); %Monocytes 6.8 % (0.0-10.0); %Neutrophils 58.9 % (42.0-75.0); Hematocrit 35.9 % (36.0-47.0); Hemoglobin 11.7 g/dL (12.0-16.0); Mean Corpuscular HGB CONC 32.6 g/dL (32.0-36.0); Mean Corpuscular Hemoglobin 32.1 pg (27.0-31.0); Mean Corpuscular Volume 98.4 fl (78.0-98.0); Mean Platelet Volume 9.7 fL (7.4-10.4); Platelet Count 212 10x3/uL (130-400); RBC Distribution Width 16.7 % (11.5-14.5); Red Blood Cell (RBC) Count 3.65 mill/uL (4.20-5.40)
[2023-03-08 07:10] LABS: Anion Gap 11 mmol/L (10-20); BUN (Urea Nitrogen) 10 mg/dL (9.8-20.1); CRP (Inflammatory) 12.66 mg/dL (= or < 0.5); Calc. Creatinine Clearance 49 mL/min (70-130); Calcium 8.5 mg/dL (7.8-10.44); Carbon Dioxide 17 mmol/L (23-31); Chloride 115 mmol/L (98-107); Estimated GFR 85; Glucose 85 mg/dL (83-110); Iron 19 ug/dL (50-170); Iron Binding Capacity, Total 198 mcg/dL (265-497); Potassium 3.6 mmol/L (3.5-5.1); Sodium 139 mmol/L (136-145)
[2023-03-08] MEDS ORDERED: Apixaban 5 MG TAB PO SCH (09:00)
[2023-03-08] MEDS: Multivit, Therapeutic 1 TAB PO SCH (09:50)
[2023-03-08] MEDS: Nystatin 500,000 UNITS/5 ML UDCUP SSW SCH ×3 (09:50→16:54)
[2023-03-08] MEDS: levETIRAcetam 500 MG TAB PO SCH (09:50)
[2023-03-08] MEDS: Baclofen 10 MG TAB PO SCH (09:50)
[2023-03-08] MEDS: Megestrol Acetate 40 MG TAB PO SCH (09:50)
[2023-03-08] MEDS: Sodium Bicarbonate Tab 325 MG TAB PO SCH ×2 (09:50→15:41)
[2023-03-08] MEDS: Carbidopa/Levodopa 25-100 mg Tablet PO SCH ×2 (09:51→15:41)
[2023-03-08] MEDS: Naloxegol 12.5 MG TAB PO SCH (09:51)
[2023-03-08] MEDS: Pregabalin 50 MG CAP PO SCH ×2 (09:51→15:42)
[2023-03-08] MEDS: Aspirin 81 mg Enteric Coated Tablet PO SCH (09:51)
[2023-03-08] MEDS: ALPRAZolam 0.25 MG TAB PO SCH ×2 (09:51→15:41)
[2023-03-08] MEDS: Senokot S 8.6-50 MG TAB PO SCH (09:51)
[2023-03-08] MEDS: Topiramate 100 MG TAB PO SCH (09:51)
[2023-03-08] MEDS: Fluticasone Propionate Nasal Spray 16 gm Bottle NASAL SCH (09:53)
[2023-03-08] MEDS: Lisinopril 20 MG TAB PO SCH (12:34)
[2023-03-08] MEDS: traMADol HCl 50 MG TAB PO PRN (14:08)
[2023-03-08 16:21] VITALS: BP 116/71; TEMP 98.9
[2023-03-09 15:54] LABS: Ferritin 253.52 ng/mL (10-291)
== END 2023-03-08 20:35 | DRG 91 ==
LOC: SUATTDRO 11:14 → ERS 11:14 → T4-B 17:28 → OBSVTOIN 03-08 10:10
PROVIDERS: ADMIT Family Medicine; ATTEND Family Medicine
PROC: 30233N1 Transfusion of Nonautologous Red Blood Cells into Peripheral Vein, Percutaneous Approach (ICD-10-PCS; principal; 2023-03-07)
DX: G92.8 Other toxic encephalopathy (principal); G06.1 Intraspinal abscess and granuloma; M46.22 Osteomyelitis of vertebra, cervical region; I82.C22 Chronic embolism and thrombosis of left internal jugular vein; M46.42 Discitis, unspecified, cervical region; F41.9 Anxiety disorder, unspecified; E78.00 Pure hypercholesterolemia, unspecified; G20.A1 Parkinson's disease without dyskinesia, without mention of fluctuations; R53.1 Weakness; T50.905A Adverse effect of unspecified drugs, medicaments and biological substances, initial encounter; E03.9 Hypothyroidism, unspecified; G89.29 Other chronic pain; D64.9 Anemia, unspecified; Z98.890 Other specified postprocedural states; Z88.0 Allergy status to penicillin; Z88.8 Allergy status to other drugs, medicaments and biological substances; Z86.73 Personal history of transient ischemic attack (TIA), and cerebral infarction without residual deficits; Z79.899 Other long term (current) drug therapy; Z79.890 Hormone replacement therapy; Z90.710 Acquired absence of both cervix and uterus; Z90.49 Acquired absence of other specified parts of digestive tract
CPT/HCPCS: 36415; 36430; 70553; 71045; 72156; 80048; 80053; 81001; 82607; 82728; 83540; 83550; 83605; 83690; 84484; 85025; 85046; 85610; 85730; 86140; 86850; 86900; 86901; 87040; 93005; 94760; A9579; J2700; J3370-JW; J3490; P9016; S0179

== ENCOUNTER 2023-04-13 20:32 | Inpatient (IN) | payer OTHER ==
[2023-04-13] MEDS ORDERED: Ondansetron PF 4 MG/2 ML Vial ONE ×2 (21:28→21:44)
[2023-04-13] MEDS ORDERED: Morphine 2 MG/ML VIAL ONE (21:28)
[2023-04-13 21:39] LABS: #Eosinphils 0.3 thou/uL (0.0-0.7); #Monocytes 0.7 thou/uL (0.11-0.59); #Neutrophils 4.2 thou/uL (1.40-6.50); %Basophils 0.4 % (0.0-1.0); %Eosinophils 3.7 % (0.0-10.0); %Lymphocytes 24.1 % (21.0-51.0); %Monocytes 10.2 % (0.0-10.0); %Neutrophils 61.2 % (42.0-75.0); Hematocrit 27.2 % (36.0-47.0); Hemoglobin 8.9 g/dL (12.0-16.0); Mean Corpuscular HGB CONC 32.7 g/dL (32.0-36.0); Mean Corpuscular Hemoglobin 31.7 pg (27.0-31.0); Mean Corpuscular Volume 96.8 fl (78.0-98.0); Mean Platelet Volume 9.6 fL (7.4-10.4); Platelet Count 228 10x3/uL (130-400); RBC Distribution Width 16.6 % (11.5-14.5); Red Blood Cell (RBC) Count 2.81 mill/uL (4.20-5.40); White Blood Cell (WBC) Count 6.9 10x3/uL (4.8-10.8)
[2023-04-13] MEDS ORDERED: Ondansetron ODT 4 MG TAB SL PRN (21:45)
[2023-04-13] MEDS ORDERED: Ondansetron PF 4 MG/2 ML Vial IVP PRN (21:45)
[2023-04-13] MEDS ORDERED: [UNRECOGNIZED DRUG - OTHER] IV SCH (22:00)
[2023-04-13] MEDS ORDERED: HUM PROTHROMBIN CPLX IV SCH (22:00)
[2023-04-13] MEDS ORDERED: ADMIXTURE FEE IV SCH (22:00)
[2023-04-13 22:05] LABS: ALT (SGPT) Less than 7 U/L (8-55); AST (SGOT) 24 U/L (5-34); Albumin 2.9 g/dL (3.4-4.8); Alkaline Phosphatase 75 U/L (40-110); Anion Gap 12 mmol/L (10-20); BUN (Urea Nitrogen) 17 mg/dL (9.8-20.1); Bilirubin, Total 0.2 mg/dL (0.2-1.2); Calc. Creatinine Clearance 0 mL/min (70-130); Calcium 8.9 mg/dL (7.8-10.44); Carbon Dioxide 19 mmol/L (23-31); Chloride 111 mmol/L (98-107); Estimated GFR 65; Globulin 3.7 g/dL (2.4-3.5); Glucose 138 mg/dL (83-110); Protein, Total 6.6 g/dL (5.8-8.1); Sodium 139 mmol/L (136-145)
[2023-04-13 22:06] LABS: INR-International Normal Ratio 1.3; PTT 43.9 sec (22.9-36.1); Prothrombin Time 16.5 sec (12.0-14.7)
[2023-04-13 22:10] LABS: Critical Call Chemistry NUR.LIZ@2210; Potassium 2.6 mmol/L (3.5-5.1)
[2023-04-14] MEDS: Morphine 4 MG/ML VIAL SLOW IVP PRN ×4 (00:30→16:55)
[2023-04-14] MEDS ORDERED: Electrolyte Replacement Protocol 1 EACH FS SCH (01:00)
[2023-04-14] MEDS ORDERED: traZODone HCl 50 MG TAB PO PRN (01:04)
[2023-04-14] MEDS ORDERED: ALPRAZolam 0.25 MG TAB PO SCH (01:30)
[2023-04-14] MEDS ORDERED: Morphine 4 MG/ML VIAL SLOW IVP SCH (01:30)
[2023-04-14] MEDS: Potassium Chloride 40 MEQ in Premix 1 BAG IVPB SCH ×2 (01:54→06:00)
[2023-04-14] MEDS ORDERED: Acetaminophen 650 MG Suppository PR PRN (02:01)
[2023-04-14] MEDS ORDERED: OXACILLIN IV SCH (02:05)
[2023-04-14] MEDS: Sodium Bicarbonate Tab 325 MG TAB PO SCH ×4 (02:12→21:21)
[2023-04-14 02:32] LABS: Magnesium 2.6 mg/dL (1.6-2.6)
[2023-04-14 04:00] LABS: #Eosinphils 0.3 thou/uL (0.0-0.7); #Monocytes 0.7 thou/uL (0.11-0.59); #Neutrophils 3.2 thou/uL (1.40-6.50); %Basophils 0.5 % (0.0-1.0); %Eosinophils 4.1 % (0.0-10.0); %Lymphocytes 34.5 % (21.0-51.0); %Monocytes 10.6 % (0.0-10.0); Hematocrit 25.4 % (36.0-47.0); Hemoglobin 7.8 g/dL (12.0-16.0); Mean Corpuscular HGB CONC 30.7 g/dL (32.0-36.0); Mean Corpuscular Hemoglobin 31.1 pg (27.0-31.0); Mean Platelet Volume 9.6 fL (7.4-10.4); Platelet Count 214 10x3/uL (130-400); RBC Distribution Width 16.6 % (11.5-14.5); Red Blood Cell (RBC) Count 2.51 mill/uL (4.20-5.40); White Blood Cell (WBC) Count 6.4 10x3/uL (4.8-10.8)
[2023-04-14] MEDS: levETIRAcetam 500 MG (5 mL) VIAL SLOW IVP SCH ×3 (04:10→21:22)
[2023-04-14] MEDS: Oxacillin 2 GM in Sodium Chloride 0.9% 100 ML IVPB SCH ×6 (04:10→23:03)
[2023-04-14] MEDS: Acetaminophen 325 MG TAB PO PRN ×3 (04:23→16:43)
[2023-04-14 05:07] LABS: Mean Corpuscular Volume 101.2 fl (78.0-98.0)
[2023-04-14] MEDS: Levothyroxine Sodium 50 MCG TAB PO SCH ×2 (06:03→06:13)
[2023-04-14] MEDS: Pantoprazole 40 MG VIAL IVP SCH ×2 (06:04→08:30)
[2023-04-14] MEDS: Doxycycline 100 MG in Sodium Chloride 0.9% 100 ML IVPB SCH (08:23)
[2023-04-14] MEDS: ALPRAZolam 0.25 MG TAB PO SCH ×3 (08:29→21:21)
[2023-04-14] MEDS: levETIRAcetam 500 MG TAB PO SCH ×2 (09:52→22:48)
[2023-04-14] MEDS: Lisinopril 20 MG TAB PO SCH (09:53)
[2023-04-14] MEDS: Carbidopa/Levodopa 25-100 mg Tablet PO SCH ×4 (09:57→21:21)
[2023-04-14] MEDS: Saccharomyces boulardii 250 MG CAP PO SCH ×3 (09:57→21:21)
[2023-04-14] MEDS: Topiramate 100 MG TAB PO SCH (09:58)
[2023-04-14] MEDS ORDERED: Ondansetron PF 4 MG/2 ML Vial IVP PRN ×2 (11:09→11:10)
[2023-04-14 11:10] LABS: Bacteria/HPF None Seen HPF (None Seen); Bilirubin Negative (Negative); Blood, Urine 2+ (Negative); Clarity Clear (Clear); Glucose, Urine (Dipstick) Normal (Negative); Ketone, Urine Negative (Negative); Leukocyte 75 Leu/uL (Negative); Nitrite Negative (Negative); Protein, Urine (Dipstick) Negative (Neg-Trace); RBC/HPF 21-50 HPF (0-3); Specific Gravity, Urine 1.021 (1.002-1.036); Squamous Epithelial None Seen HPF (0-3); Urobilinogen Normal mg/dL (Less than 2); pH, Urine 7.5 (5.0-9.0)
[2023-04-14] MEDS ORDERED: Iopamidol-370 76% 500 ML MDV (1 ML CHARGE) ONE (12:21)
[2023-04-14 12:50] LABS: Potassium 3.6 mmol/L (3.5-5.1)
[2023-04-14] MEDS ORDERED: Nystatin 100,000 Units/mL UDCUP SSW SCH (13:00)
[2023-04-14] MEDS: Nystatin 500,000 UNITS/5 ML UDCUP SSW SCH ×4 (13:02→21:27)
[2023-04-14] MEDS ORDERED: ALPRAZolam 0.25 MG TAB PO PRN (15:13)
[2023-04-14] MEDS: Baclofen 10 MG TAB PO SCH ×3 (16:32→21:21)
[2023-04-14] MEDS ORDERED: Sodium Chloride 0.9% 1,000 ML IV SCH (17:45)
[2023-04-14 18:10] LABS: #Eosinphils 0.1 thou/uL (0.0-0.7); #Monocytes 0.7 thou/uL (0.11-0.59); #Neutrophils 4.2 thou/uL (1.40-6.50); %Basophils 0.6 % (0.0-1.0); %Eosinophils 1.7 % (0.0-10.0); %Monocytes 9.4 % (0.0-10.0); Hematocrit 27.6 % (36.0-47.0); Hemoglobin 8.6 g/dL (12.0-16.0); Mean Corpuscular HGB CONC 31.2 g/dL (32.0-36.0); Mean Corpuscular Hemoglobin 30.7 pg (27.0-31.0); Mean Corpuscular Volume 98.6 fl (78.0-98.0); Mean Platelet Volume 9.3 fL (7.4-10.4); Platelet Count 239 10x3/uL (130-400); RBC Distribution Width 16.5 % (11.5-14.5); White Blood Cell (WBC) Count 7.1 10x3/uL (4.8-10.8)
[2023-04-14 18:33] LABS: BUN (Urea Nitrogen) 11 mg/dL (9.8-20.1); Calc. Creatinine Clearance 41 mL/min (70-130); Calcium 8.7 mg/dL (7.8-10.44); Carbon Dioxide 17 mmol/L (23-31); Chloride 115 mmol/L (98-107); Estimated GFR 78; Glucose 118 mg/dL (83-110); Potassium 3.2 mmol/L (3.5-5.1); Sodium 141 mmol/L (136-145)
[2023-04-14 18:53] LABS: Anion Gap 12 mmol/L (10-20)
[2023-04-14] MEDS ORDERED: Potassium Chloride 40 MEQ in Premix 1 BAG IVPB SCH (21:00)
[2023-04-14] MEDS: Famotidine 20 MG TAB PO SCH ×2 (21:21)
[2023-04-14] MEDS: Atorvastatin Calcium 20 MG TAB PO SCH ×2 (21:21)
[2023-04-14] MEDS: Carvedilol 3.125 MG TAB PO SCH ×2 (21:21)
[2023-04-14] MEDS ORDERED: hydrALAZINE 20 MG/ML VIAL SLOW IVP PRN (22:52)
[2023-04-15 02:29] LABS: Actual Bicarbonate (HCO3a) 15.5 mEq/L (22-28); Base Excess (BEa) -5.5 mEq/L (-2.0 to +3.0); Calcium, Ionized (arterial) 1.21 mmol/L (1.12-1.30); Carboxyhemoglobin (COHb) 0.6 gm% (0.0-3.0); Hematocrit-ABG 28 % (36.0-47.0); Hemoglobin (Hb) 9.6 g/dL (12.0-16.0); Potassium - ABG Lab 3.22 mmol/L (3.70-5.30); pH, Arterial 7.533 (7.35-7.45)
[2023-04-15 02:31] LABS: ALV-art Gradient 121.915 mmHg (0-20); CO2 Tension 18.9 mmHg (35.0-45.0); O2 Tension (PaO2), arterial 54.1 mmHg (> 60.0)
[2023-04-15] MEDS: Doxycycline 100 MG in Sodium Chloride 0.9% 100 ML IVPB SCH (03:05)
[2023-04-15] MEDS: Oxacillin 2 GM in Sodium Chloride 0.9% 100 ML IVPB SCH ×3 (03:18→09:30)
[2023-04-15] MEDS ORDERED: Levothyroxine Sodium 75 MCG TAB PO SCH (06:00)
[2023-04-15] MEDS ORDERED: Etomidate 40 MG (20 mL) VIAL ONE (06:36)
[2023-04-15] MEDS ORDERED: Rocuronium Bromide 10 MG/ML (10ML VIAL) ONE (06:36)
[2023-04-15] MEDS ORDERED: Ventilator Sedation Protocol 1 EACH FS SCH (06:45)
[2023-04-15] MEDS ORDERED: Propofol 1,000 MG/100 ML VIAL IV PRN (06:45)
[2023-04-15] MEDS ORDERED: DISCONTINUE PREVIOUS NARCOTIC PAIN MEDICATIONS AND BENZODIAZEPINES FS SCH (06:45)
[2023-04-15] MEDS ORDERED: Fentanyl CADD 100 ML IV SCH (06:45)
[2023-04-15] MEDS ORDERED: Fentanyl BOLUS 250 ML IVPB PRN (06:45)
[2023-04-15] MEDS ORDERED: Propofol BOLUS 1,000 MG/100 ML VIAL IV PRN (06:45)
[2023-04-15 07:00] LABS: Actual Bicarbonate (HCO3a) 14.4 mEq/L (22-28); Base Excess (BEa) -10.5 mEq/L (-2.0 to +3.0); CO2 Tension 28.6 mmHg (35.0-45.0); Calcium, Ionized (arterial) 1.23 mmol/L (1.12-1.30); Carboxyhemoglobin (COHb) 0.3 gm% (0.0-3.0); Hematocrit-ABG 31 % (36.0-47.0); Hemoglobin (Hb) 10.5 g/dL (12.0-16.0); O2 Tension (PaO2), arterial 103.2 mmHg (> 60.0); Potassium - ABG Lab 3.02 mmol/L (3.70-5.30); Puncture Site LRA; pH, Arterial 7.319 (7.35-7.45)
[2023-04-15] MEDS: Morphine 2 MG/ML VIAL SLOW IVP PRN ×11 (08:11→22:58)
[2023-04-15] MEDS: Lorazepam 2 MG/ML VIAL SLOW IVP PRN ×10 (08:11→23:00)
[2023-04-15] MEDS: Baclofen 10 MG TAB PO SCH (08:28)
[2023-04-15] MEDS: Carvedilol 3.125 MG TAB PO SCH (08:28)
[2023-04-15] MEDS: Carbidopa/Levodopa 25-100 mg Tablet PO SCH (08:28)
[2023-04-15] MEDS: Pantoprazole 40 MG VIAL IVP SCH (08:29)
[2023-04-15] MEDS: Sodium Bicarbonate Tab 325 MG TAB PO SCH (08:29)
[2023-04-15] MEDS: Lisinopril 20 MG TAB PO SCH (08:29)
[2023-04-15] MEDS: Topiramate 100 MG TAB PO SCH (08:29)
[2023-04-15] MEDS: Nystatin 500,000 UNITS/5 ML UDCUP SSW SCH (08:29)
[2023-04-15] MEDS: levETIRAcetam 500 MG TAB PO SCH (08:29)
[2023-04-15] MEDS: Saccharomyces boulardii 250 MG CAP PO SCH (08:29)
[2023-04-15] MEDS ORDERED: levETIRAcetam 500 MG (5 mL) VIAL SLOW IVP SCH (09:00)
[2023-04-15] MEDS: Scopolamine 1 mg/72 hour Patch TD SCH (13:05)
[2023-04-16] MEDS: Lorazepam 2 MG/ML VIAL SLOW IVP PRN ×11 (02:05→23:39)
[2023-04-16] MEDS: Morphine 2 MG/ML VIAL SLOW IVP PRN ×11 (02:05→23:39)
[2023-04-17] MEDS: Morphine 2 MG/ML VIAL SLOW IVP PRN ×8 (04:30→23:58)
[2023-04-17] MEDS: Lorazepam 2 MG/ML VIAL SLOW IVP PRN ×8 (04:31→23:59)
[2023-04-18] MEDS: Lorazepam 2 MG/ML VIAL SLOW IVP PRN ×11 (01:52→23:18)
[2023-04-18] MEDS: Morphine 2 MG/ML VIAL SLOW IVP PRN ×12 (01:52→23:16)
[2023-04-18] MEDS: Scopolamine 1 mg/72 hour Patch TD SCH (12:20)
[2023-04-18 12:37] VITALS: BMI 16.9
[2023-04-19] MEDS: Morphine 2 MG/ML VIAL SLOW IVP PRN ×16 (00:39→22:25)
[2023-04-19] MEDS: Lorazepam 2 MG/ML VIAL SLOW IVP PRN ×16 (00:39→22:26)
[2023-04-20] MEDS: Morphine 2 MG/ML VIAL SLOW IVP PRN ×14 (01:33→22:45)
[2023-04-20] MEDS: Lorazepam 2 MG/ML VIAL SLOW IVP PRN ×14 (01:34→22:46)
[2023-04-20 19:52] VITALS: BP 67/39; TEMP 99.4
[2023-04-21] MEDS: Lorazepam 2 MG/ML VIAL SLOW IVP PRN ×4 (00:41→05:52)
[2023-04-21] MEDS: Morphine 2 MG/ML VIAL SLOW IVP PRN ×4 (00:41→05:52)
== END 2023-04-21 09:24 | disposition expired | DRG 963 ==
LOC: ERS 20:32 → IMCU/EMU 21:19 → CCU 04-15 06:13 → MSONC 04-15 10:44
PROVIDERS: ADMIT Surgery; ATTEND Internal Medicine
PROC: 30283B1 Transfusion of Nonautologous 4-Factor Prothrombin Complex Concentrate into Vein, Percutaneous Approach (ICD-10-PCS; principal; 2023-04-13)
PROC: 4A133R1 Monitoring of Arterial Saturation, Peripheral, Percutaneous Approach (ICD-10-PCS; 2023-04-15)
PROC: 0BH17EZ Insertion of Endotracheal Airway into Trachea, Via Natural or Artificial Opening (ICD-10-PCS; 2023-04-15)
PROC: 5A1935Z Respiratory Ventilation, Less than 24 Consecutive Hours (ICD-10-PCS; 2023-04-15)
DX: S06.5X0A Traumatic subdural hemorrhage without loss of consciousness, initial encounter (principal); G93.41 Metabolic encephalopathy; S32.89XA Fracture of other parts of pelvis, initial encounter for closed fracture; J96.01 Acute respiratory failure with hypoxia; S06.A1XA Traumatic brain compression with herniation, initial encounter; I50.32 Chronic diastolic (congestive) heart failure; M46.22 Osteomyelitis of vertebra, cervical region; G81.94 Hemiplegia, unspecified affecting left nondominant side; L02.11 Cutaneous abscess of neck; E87.3 Alkalosis; I82.C12 Acute embolism and thrombosis of left internal jugular vein; Z51.5 Encounter for palliative care; F41.9 Anxiety disorder, unspecified; S06.6X0A Traumatic subarachnoid hemorrhage without loss of consciousness, initial encounter; E78.00 Pure hypercholesterolemia, unspecified; G89.29 Other chronic pain; G20.A1 Parkinson's disease without dyskinesia, without mention of fluctuations; E78.5 Hyperlipidemia, unspecified; D64.9 Anemia, unspecified; E03.9 Hypothyroidism, unspecified; W19.XXXA Unspecified fall, initial encounter; M46.42 Discitis, unspecified, cervical region; E87.6 Hypokalemia; Z98.890 Other specified postprocedural states; Z90.49 Acquired absence of other specified parts of digestive tract; Z86.73 Personal history of transient ischemic attack (TIA), and cerebral infarction without residual deficits; Z90.710 Acquired absence of both cervix and uterus; Z79.899 Other long term (current) drug therapy; Y92.89 Other specified places as the place of occurrence of the external cause; Z88.0 Allergy status to penicillin; Z88.8 Allergy status to other drugs, medicaments and biological substances; Z88.5 Allergy status to narcotic agent; Z79.01 Long term (current) use of anticoagulants
CPT/HCPCS: 36415; 36416; 36600; 70450; 70496; 71045; 72125; 72170; 80053; 81001; 82805; 83735; 83880; 84132; 85025; 85610; 85730; 86140; 86850; 86900; 86901; 87040; 87077; 87086; 87186; 94002; 96374; 96375; C9113; J0360; J1953; J2060; J2270; J2272; J2405; J2700; J3480; J3490; J7050; J7168; Q9967